=== PATIENT | male | born 1955 | race Caucasian/White ===

== ENCOUNTER 2017-02-18 13:10 | Emergency (ER) | payer OTHER, SELFPAY ==
[2017-02-18 13:30] VITALS: BP 168/88; PULSE 75; RESP 18; TEMP 36.7; O2SAT 97; BMI 23.4
[2017-02-18 13:58] VITALS: BP 168/88; PULSE 75; RESP 18; TEMP 36.6; O2SAT 97; BMI 23.4
--- NOTE | 2017-02-18 14:04 | XR_ITS ---
XR finger RT min 2V CLINICAL INDICATION: Pain following injury ITS.REASON: SMASHED FINGER AT WORK ORDERING PHYSICIAN: Eloina Lewis PATIENT AGE: 62 years COMPARISON: None FINDINGS: No fracture or dislocation is evident. On the AP view there is a triangular-shaped 3 mm opacity along the base and ulnar aspect of the fifth metacarpal and could represent a foreign body such as these glass within the soft tissues. Please correlate clinically. IMPRESSION: 1. No acute fracture. 2. Possible foreign body at the base of the fifth metacarpal
--- NOTE | 2017-02-18 14:48 | HMH.EDUTC ---
[facility] [place] Disposition Clinical Impression: Finger injury Qualifiers: Encounter type: initial encounter Laterality: right Qualified Code(s): S69.91XA - Unspecified injury of right wrist, hand and finger(s), initial encounter Disposition: Home, Self-Care Condition on Discharge: Good Additional Instructions: *RICE, Rest the extremity, Ice 15-20 minutes 3-4 times daily, Compress- wear the brian wrap as discussed as much as possible to help reduce swelling and pain, Elevate the extremity when at rest *Brian wrap is for support and help control swelling, use it except in the shower. Be sure that is not to tight but not to loose either *Elevate when resting *Ibuprofen 600-800mg every 6-8 hours as needed for pain an inflammation. If need something more can take Tylenol in between doses of Ibuprofen to help Immediately follow up for new or worsening of symptoms, or no noticeable improvement over the next 3-5 days Referrals: Provider,Referral, MD [Primary Care Provider] - Time of Disposition: 15:23 Medical Decision Making Vital Signs: 02/18/17 13:30 02/18/17 13:58 Temperature 98.0 F 98 F Temperature Source Oral Temporal Artery Scan Pulse Rate [Left Brachial] 75 75 Respiratory Rate 18 18 Blood Pressure [Left Arm] 168/88 168/88 Blood Pressure Mean [Left Arm] 114 114 Blood Pressure Source [Left Arm] Automatic Cuff Automatic Cuff Blood Pressure Position [Left Arm] Sitting Sitting 02 Sat by Pulse Oximetry 97 97 Oxygen Delivery Method Room Air Room Air Orders (Tests/Meds): ED MEDICATIONS Discontinued Medications Generic Name Dose Route Start Last Admin Trade Name Freq PRN Reason Stop Dose Admin Tetanus/Diphtheria Toxoids 0.5 ml 02/18/17 15:02 Tenivac 0.5ml Syringe IM 02/18/17 15:03 .ONCE ONE - Radiology Data #1 Image(s): Finger(s)/Thumb Image Reviewed: Yes I discussed the image results w/the radiologist - Huey Inquiry Pt receiving controlled substance: No Huey was queried for this patient: No - Reevaluation(s) Time: 15:22 (Bleeding stopped, small 1x2 area where skin has been scratched off that was bleeding, steri placed and bleeding stopped no obvious nail injury/cut) [facility] [place] HPI - General Stated complaint: wc [id number] R pinky finger Mode of Arrival: Ambulatory Source of Information: Patient Limitations: No Limitations Description of Symptoms (Recalled from Triage Doc. by RN): SMASHED RT FIFTH DIGIT WHILE AT WORK HEENT Symptoms (Recalled from RN notes): No Resp Symptoms (Recalled from RN notes): No Skin Symptoms (Recalled from RN notes): No MS Symptoms (Recalled from RN notes): Yes (SMASHED RT FIFTH DIGIT) Functional Status (Recalled from RN notes): N/A - History of Present Illness Provider Complaint: Patient states that he was at work when his right pinky finger got smashed between bucket and metal railing State that he is on blood thinner and noticed that his finger was bleeding States that he immediately applied pressure to the finger and it continued bleeding so his boss had him come up here and be seen State that he feels like he smashed his nail and peeled the skin back on his finger State that he also needs a tetnus shot - Related Data Allergies Allergy/AdvReac Type Severity Reaction Status Date / Time aspirin [ASPIRIN] Allergy Unknown rash Unverified 01/27/17 14:37 clarithromycin [From BIAXIN] Allergy Unknown rash Unverified 01/27/17 14:37 - Worker's Comp Is this a Worker's Comp case?: Yes Is this an H Worker's Comp?: No Is this a Zack Worker's Comp?: No [facility] History I have reviewed the patient's past medical history: Yes - *Social History Smoking Status: Never smoker Alcohol Intake: never - Psychiatric History Expresses thoughts of harming self/others: None Suicide Plan Description: No Plan ROS Obtained: Yes All systems reviewed & no additional complaints, Yes other (injury to right 5th digit ) Physical Exam - General General appearance: alert, in n
--- NOTE | 2017-02-18 14:51 | ED_ITS ---
[facility] [place] Disposition Clinical Impression: Finger injury Qualifiers: Encounter type: initial encounter Laterality: right Qualified Code(s): S69.91XA - Unspecified injury of right wrist, hand and finger(s), initial encounter Disposition: Home, Self-Care Condition on Discharge: Good Additional Instructions: *RICE, Rest the extremity, Ice 15-20 minutes 3-4 times daily, Compress- wear the brian wrap as discussed as much as possible to help reduce swelling and pain, Elevate the extremity when at rest *Brian wrap is for support and help control swelling, use it except in the shower. Be sure that is not to tight but not to loose either *Elevate when resting *Ibuprofen 600-800mg every 6-8 hours as needed for pain an inflammation. If need something more can take Tylenol in between doses of Ibuprofen to help Immediately follow up for new or worsening of symptoms, or no noticeable improvement over the next 3-5 days Referrals: Provider,Referral, MD [Primary Care Provider] - Time of Disposition: 15:23 Medical Decision Making Vital Signs: 02/18/17 13:30 02/18/17 13:58 Temperature 98.0 F 98 F Temperature Source Oral Temporal Artery Scan Pulse Rate [Left Brachial] 75 75 Respiratory Rate 18 18 Blood Pressure [Left Arm] 168/88 168/88 Blood Pressure Mean [Left Arm] 114 114 Blood Pressure Source [Left Arm] Automatic Cuff Automatic Cuff Blood Pressure Position [Left Arm] Sitting Sitting 02 Sat by Pulse Oximetry 97 97 Oxygen Delivery Method Room Air Room Air Orders (Tests/Meds): ED MEDICATIONS Discontinued Medications Generic Name Dose Route Start Last Admin Trade Name Freq PRN Reason Stop Dose Admin Tetanus/Diphtheria Toxoids 0.5 ml 02/18/17 15:02 Tenivac 0.5ml Syringe IM 02/18/17 15:03 .ONCE ONE - Radiology Data #1 Image(s): Finger(s)/Thumb Image Reviewed: Yes I discussed the image results w/the radiologist - Huey Inquiry Pt receiving controlled substance: No Huey was queried for this patient: No - Reevaluation(s) Time: 15:22 (Bleeding stopped, small 1x2 area where skin has been scratched off that was bleeding, steri placed and bleeding stopped no obvious nail injury/cut) [facility] [place] HPI - General Stated complaint: wc [id number] R pinky finger Mode of Arrival: Ambulatory Source of Information: Patient Limitations: No Limitations Description of Symptoms (Recalled from Triage Doc. by RN): SMASHED RT FIFTH DIGIT WHILE AT WORK HEENT Symptoms (Recalled from RN notes): No Resp Symptoms (Recalled from RN notes): No Skin Symptoms (Recalled from RN notes): No MS Symptoms (Recalled from RN notes): Yes (SMASHED RT FIFTH DIGIT) Functional Status (Recalled from RN notes): N/A - History of Present Illness Provider Complaint: Patient states that he was at work when his right pinky finger got smashed between bucket and metal railing State that he is on blood thinner and noticed that his finger was bleeding States that he immediately applied pressure to the finger and it continued bleeding so his boss had him come up here and be seen State that he feels like he smashed his nail and peeled the skin back on his finger State that he also needs a tetnus shot - Related Data Allergies Allergy/AdvReac Type Severity Reaction Status Date / Time aspirin [ASPIRIN] Allergy Unknown rash Unverified 01/27/17 14:37 clarithromycin [From BIAXIN] Allergy Unknown rash
== END 2017-02-18 15:37 | disposition home or self-care (01) ==
LOC: UTC 13:15 → ER 13:21 → UTC 13:56 → ER 13:56 → UTC 13:56
PROVIDERS: Emergency Provider Nurse Practitioner
DX: S60.051A Contusion of right little finger without damage to nail, initial encounter (principal); W23.0XXA Caught, crushed, jammed, or pinched between moving objects, initial encounter; Y92.69 Other specified industrial and construction area as the place of occurrence of the external cause; Y99.0 Civilian activity done for income or pay; Z23 Encounter for immunization; Z79.01 Long term (current) use of anticoagulants; I25.10 Atherosclerotic heart disease of native coronary artery without angina pectoris; Z95.5 Presence of coronary angioplasty implant and graft
CPT/HCPCS: 73140; 90471; 90714; 99202; 99282

== ENCOUNTER → 2017-03-04 10:27 | Outpatient (CLI) | payer OTHER, SELFPAY ==
--- NOTE | 2017-03-04 10:33 | CA_ITS ---
PROCEDURE: 2-D M-mode and color Doppler study INDICATIONS FOR THE TEST: Chest pain COPD+ Heart Murmur Tobacco SmokingEX Palpitations Fatigue Syncope Edema Hypertension+Diabetes Mellitus Rheumatic Fever SOB+CHENG Obesity Hyperlipidemia+ Family History HD+ Additional History CAD, ABN EKG, Asthma PATIENT INFORMATION HEIGHT: 71 WEIGHT:174 GENDER: Male B/P:182/110 2-D/M-MODE INTERPRETATION: 2-D MEASUREMENTS OBSERVED VALUES IN CMS Right Ventricular Dimension (RVDd) 2.2 Interventricular Septum (Thickness)(IVsd) 1.3 Left Ventricular Internal Dimensions(LVIDd) 4.3 Left Ventricular Posterior Wall (Thickness)(LVPWd) 1.2 Aortic Root 2.8 Aortic Cusp Separation 1.8 Left Atrial Dimensions (LAD) 3.3 2D 1. Left atrium is mildly enlarged, left ventricle is normal size, there is mild concentric left ventricular hypertrophy, visually estimated ejection fraction 55% with no obvious regional wall motion abnormality. 2. The right atrium and right ventricle are normal size and contractility. 3. The aortic valve is minimally thickened and fibrosed. 4. The mitral and tricuspid valve are minimally thickened. 5. Pulmonic valve is poorly visualized. 6. No significant pericardial effusion noted. DOPPLER INTERROGATION: Doppler interrogation of the aortic, mitral and tricuspid valvular presence of mild mitral and tricuspid regurgitation, tricuspid and enteric velocity insufficient for calculation of the right ventricular systolic pressure, grade 1 diastolic dysfunction seen with tissue Doppler evidence of raised left atrial pressure. CONCLUSION: 1. Mildly enlarged left atrium, normal left ventricular size, mild concentric left ventricular hypertrophy, visually estimated ejection fraction 55% with no obvious regional wall motion abnormality, grade 1 diastolic dysfunction seen with tissue Doppler evidence of raised left atrial pressure. 2. Mild mitral and tricuspid regurgitation. 3. No significant pericardial effusion noted.
[2017-03-04 11:35] LABS: Alanine Aminotransferase 30 U/L (12-78); Albumin Level 3.7 gm/dL (3.4-5.0); Alkaline Phosphatase 93 U/L (46-116); Anion Gap 11.8 mEq/L (5-15); Aspartate Amino Transferase 24 U/L (15-37); Bilirubin,Direct 0.2 mg/dL (0.0-0.2); Bilirubin,Total 0.7 mg/dL (0.2-1.0); Blood Urea Nitrogen 14 mg/dL (7-18); CKMB Relative Index 0.9 U/L (0-4.0); Carbon Dioxide 30 mmol/L (21.0-32.0); Chloride 104 mmol/L (98-107); Chol/HDL Ratio 1.7 (1-3.5); Cholesterol 117 mg/dL (140-200); Creatine Kinase 103 U/L (39-308); Creatine Kinase MB 0.9 mg/ml (0.0-3.6); Creatinine,Serum 0.98 mg/dL (0.70-1.30); Estimated Glomerular Filt Rate 77 ml/min (>60); GFR (African American) 93 ML/MIN (>60); Glucose 105 mg/dL (74-106); HDL Cholesterol 70 mg/dL (27-67); LDL Cholesterol 37 mg/dL (0-130); Potassium 4.8 mmoL/L (3.5-5.1); Sodium 141 mmol/L (136-145); Total Protein,Serum 7.1 gm/dL (6.4-8.2); Triglycerides 48 mg/dL (30-200); Troponin I < 0.02 ng/ml (0.00-0.06); VLDL Cholesterol 10 mg/dL (0-40)
== END ==
PROVIDERS: Internal Medicine; PCP Family Medicine; Visit Provider Physician Assistant
DX: Z95.5 Presence of coronary angioplasty implant and graft (principal); I25.10 Atherosclerotic heart disease of native coronary artery without angina pectoris; I10 Essential (primary) hypertension; E78.5 Hyperlipidemia, unspecified; R06.00 Dyspnea, unspecified
CPT/HCPCS: 36415; 80048; 80061; 80076; 82550; 82553; 84484; 93306

== ENCOUNTER → 2018-11-23 13:10 | Outpatient (CLI) | payer OTHER, SELFPAY ==
--- NOTE | 2018-11-23 13:24 | CT_ITS ---
PROCEDURE: CT CHEST WO CON CLINICAL INDICATION: WEIGHT LOSS Unintentional weight loss COMPARISON: No exams were available for comparison TECHNIQUE: Axial images obtained with sagittal and coronal reformats. All CT scans at the facility use one or more dose reduction, viz: automated exposure control, ma/kV adjustment per patient size (including targeted exams where dose is matched to indication, i.e. head), or iterative reconstruction technique. FINDINGS: No mediastinal or hilar mass or adenopathy. There are few calcified nodes in the mediastinum and a few small mediastinal nodes are present which are noncalcified. There are coronary artery calcifications. There is COPD changes with biapical pleural thickening and centrilobular emphysema. Calcified granuloma is present in the right upper lobe inferiorly. There are mild fibrotic changes in the lingula. No suspicious pulmonary nodules. No lobar consolidation or collapse. Upper abdominal images are unremarkable. No acute bony findings. There is a small left renal cyst which measures 2.6 cm IMPRESSION: COPD/centrilobular emphysema with chronic changes. No acute finding. Dictated by: Antonio Puente MD 11/24/2018 16:40 Electronically signed by Antonio Puente MD in [place] 11/24/2018 16:40
== END ==
PROVIDERS: PCP Family Medicine; Visit Provider Nurse Practitioner Family
DX: R63.4 Abnormal weight loss (principal)
CPT/HCPCS: 71250

== ENCOUNTER 2020-03-06 06:28 | Inpatient (IN) | payer OTHER, SELFPAY ==
[2020-03-06] VITALS (11 sets, daily range): BP systolic 125–194; BP diastolic 80–113; PULSE 61–96; RESP 16–26; TEMP 36.6–36.9; O2SAT 83–98; BMI 24.3; BMI 22.4
--- NOTE | 2020-03-06 06:31 | XR_ITS ---
PROCEDURE: XR CHEST PORTABLE CLINICAL HISTORY: SOB Shortness of COMPARISON: CR CXR2 CHEST-AP VIEW ONLY from 07/22/2016 CR CXR1 CHEST-PORTABLE from 07/24/2016 CR CXR CHEST(2 VIEWS-NOT PORTABLE) from 07/28/[address] CHEST WO CON from 11/23/2018 FINDINGS: The cardiomediastinal silhouette and pulmonary vascularity are within normal limits. There is hyperinflation with attenuation of the peripheral pulmonary vessels consistent with COPD. Old granulomatous disease noted. No acute bony abnormalities. IMPRESSION: Findings compatible with COPD Dictated by: Antonio Puente MD 03/06/2020 07:07 Antonio Puente MD in [facility] 03/06/2020 07:07
[2020-03-06 06:41] LABS: ABG Base Excess 3.6 mmol/L (-2.4-2.3); ABG HCO3 28.9 mmhg (22.0-26.0); ABG Oxygen Saturation 97 % (90-100); ABG PH 7.37 mmol/L (7.35-7.45); ABG PO2 87.3 mmhg (80-100); ABG TCO2 30.5 mmhg (23-27)
[2020-03-06 06:42] LABS: Allen's Test ACCEPTABLE; Oxygen 4LPM %; Source L RADIAL
[2020-03-06 06:43] LABS: ABG PCO2 51.2 mmhg (35.0-45.0)
[2020-03-06 06:48] LABS: Basophils # 0.2 K/mm3 (0-0.2); Basophils % 1.3 % (0.1-2.0); Eosinophils # 0.1 K/mm3 (0.0-0.4); Eosinophils % 1.1 % (0.1-12.0); Hematocrit 52.9 % (42.0-52.0); Hemoglobin 17.4 g/dL (14.1-18.0); Lymphocytes # 3.6 K/mm3 (0.7-4.5); Lymphocytes % 30.7 % (10-50); Mean Corpuscular HGB Conc 32.9 g/dL (31.8-35.4); Mean Corpuscular Hemoglobin 30.9 pg (27.0-31.2); Mean Corpuscular Volume 93.8 fl (80-94); Mean Platelet Volume 7.3 fl (7.4-10.4); Monocytes # 1.2 K/mm3 (0.1-1.0); Monocytes % 9.9 % (1.7-9.3); Neutrophils # 6.7 K/mm3 (1.8-7.8); Platelet Count 216 K/mm3 (142-424); Red Blood Count 5.64 M/mm3 (4.60-6.20); Red Cell Distribution Width 13.8 % (11.5-17.5); White Blood Count 11.8 K/mm3 (4.8-10.8)
[2020-03-06 06:59] LABS: Alanine Aminotransferase 24 U/L (12-78); Albumin Level 4.5 g/dl (3.5-5.0); Alkaline Phosphatase 105 U/L (38-126); Anion Gap 12.3 mEq/L (5-15); Aspartate Amino Transferase 40 U/L (17-59); Bilirubin,Direct 0.2 mg/dl (0.0-0.4); Bilirubin,Indirect 0.3 mg/dL (0.0-0.9); Bilirubin,Total 0.5 mg/dl (0.2-1.3); Bilirubin,Unconjugated 0.3 mg/dL (0.0-1.1); Blood Urea Nitrogen 21 mg/dl (9-20); Calcium 9.5 mg/dl (8.4-10.2); Carbon Dioxide 36 mmol/L (22.0-30.0); Chloride 97 mmol/L (98-107); Creatinine Clearance Estimated 79 mL/min (50-200); Estimated Glomerular Filt Rate 97 ml/min (>60); GFR (African American) 117 ML/MIN (>60); Glucose 108 mg/dl (74-100); Lactic Acid 1.5 mmol/L (0.7-2.1); Potassium 4.3 mmoL/L (3.5-5.1); Sodium 141 mmol/L (136-145); Total Protein,Serum 7.8 g/dl (6.3-8.2)
[2020-03-06 07:00] LABS: Magnesium 2.1 mg/dl (1.6-2.3)
[2020-03-06 07:09] LABS: NT Pro Brain Natriuretic Pep. 403 pg/mL (0-125)
[2020-03-06 07:14] LABS: Troponin I < 0.01 ng/ml (0.00-0.034)
[2020-03-06 07:16] LABS: Procalcitonin 0.053 ng/mL (0.0-2.0)
[2020-03-06 07:17] LABS: Coronavirus 19 IgG Antibody Negative (Negative); Coronavirus 19 IgM Antibody Negative (Negative)
--- NOTE | 2020-03-06 07:25 | HMH.EDSOB ---
ED Disposition Clinical Impression: Pneumonia due to COVID-19 virus, Acute exacerbation of chronic obstructive airways disease Hypertensive disorder Qualifiers: Hypertension type: essential hypertension Qualified Code(s): I10 - Essential (primary) hypertension Disposition: Admitted As Inpatient Condition on Discharge: Fair Referrals: Michael Handy MD [Primary Care Provider] - - Critical Care Critical Care Time: No Attestation: On 03/06/20, the high probability of a clinically significant, sudden or life threatening deterioration of the following system(s) required my full and direct attention, intervention and personal management. The time I documented below is in addition to time spent performing reported procedures but includes the following listed in this critical care notation. Medical Decision Making - Medical Records Medical records reviewed: Yes: I reviewed the patient's medical records. - Huey Inquiry Pt receiving controlled substance: No Vital Signs: 03/06/20 06:28 03/06/20 07:31 03/06/20 08:30 Temperature 98.5 F Temperature Source Oral Pulse Rate [Left Radial] 91 H 87 88 Respiratory Rate 26 H Blood Pressure [Right Arm] 189/113 H 194/112 H 161/107 H Blood Pressure Mean [Right Arm] 138 139 125 Blood Pressure Source [Right Arm] Automatic Cuff Automatic Cuff Automatic Cuff Blood Pressure Position [Right Arm] Sitting Sitting Sitting 02 Sat by Pulse Oximetry 83 L 98 96 Oxygen Delivery Method Room Air Nasal Cannula Nasal Cannula Oxygen Flow Rate (LPM) 2 2 - Lab Data Lab results reviewed: Yes: I reviewed the patient's lab results. Lab Results 03/06/20 06:30: WBC 11.8 H, RBC 5.64, Hgb 17.4, Hct 52.9 H, MCV 93.8, MCH 30.9, MCHC 32.9, RDW 13.8, Plt Count 216, MPV 7.3 L, Neut % (Auto) 57.0, Lymph % (Auto) 30.7, [place] % (Auto) 9.9 H, Eos % (Auto) 1.1, Baso % (Auto) 1.3, Neut # (Auto) 6.7, Lymph # (Auto) 3.6, [place] # (Auto) 1.2 H, Eos # (Auto) 0.1, Baso # (Auto) 0.2 03/06/20 06:30: Sodium 141, Potassium 4.3, Chloride 97 L, Carbon Dioxide 36 H, Anion Gap 12.3, BUN 21 H, Creatinine 0.80, Estimated Creat Clear 79, Estimated GFR 97, Est GFR ( Amer) 117, Glucose 108 H, Calcium 9.5, Total Bilirubin 0.5, Direct Bilirubin 0.2, Conjugated Bilirubin 0.0, Indirect Bilirubin 0.3, Unconjugated Bilirubin 0.3, AST 40, ALT 24, Alkaline Phosphatase 105, Troponin I < 0.01, Total Protein 7.8, Albumin 4.5, Procalcitonin 0.053 03/06/20 06:30: Lactate 1.5 03/06/20 06:30: SARS-CoV-2 IgG Ab (Rapid) Negative, SARS-CoV-2 IgM Ab (Rapid) Negative 03/06/20 06:30: NT-Pro-B Natriuret Pep 403 H 03/06/20 06:30: Magnesium 2.1 03/06/20 06:32: Specimen Source L radial, O2 % 4lpm, ABG pH 7.37, ABG pCO2 51.2 H, ABG pO2 87.3, ABG HCO3 28.9 H, ABG Total CO2 30.5 H, ABG O2 Saturation 97, ABG Base Excess 3.6 H, Antonio Test Acceptable 03/06/20 06:45: Chlamy pneumoniae PCR Not detected, Adenovirus (PCR) Not detected, B. pertussis DNA (PCR) Not detected, Coronavirus OC43 (PCR) Not detected, Coronavirus HKU1 (PCR) Not detected, Coronavirus 229E (PCR) Not detected, SARS-CoV-2 (PCR) Detected A, Coronavirus NL63 (PCR) Not detected, Human Metapneumovir PCR Not detected, Influenza A (H1) PCR Not detected, Influ A (H1N1/09) PCR Not detected, Influenza A (H3) PCR Not detected, Influenza Type A (PCR) Not detected, Influenza Type B (PCR) Not detected, M. pneumoniae (PCR) Not detected, Parainfluenza 1 (PCR) Not detected, Parainfluenza 2 (PCR) Not detected, Parainfluenza 3 (PCR) Not detected, Parainfluenza 4 (PCR) Not detected, RSV (PCR) Not detected, Entero/Rhino (PCR) Not detected Result diagrams: 03/06/20 06:30 03/06/20 06:30 Orders (Tests/Meds): ED MEDICATIONS Discontinued Medications Generic Name Dose Route Start Last Admin Trade Name Freq PRN Reason Stop Dose Admin Dexamethasone Sodium Phosphate 10 mg 03/06/20 06:35 03/06/20 06:54 Dexamethasone 4mg/Ml 1ml Vial IV 03/06/20 06:36 Not Given ONCE ONE Dexamethasone Sodium Ph
[2020-03-06 07:33] LABS: Adenovirus,PCR Not Detected (NotDetected); Bordetella Pertussis Not Detected (NotDetected); Chlamydophila Pneumoniae, PCR Not Detected (NotDetected); Coronavirus 229E Not Detected (NotDetected); Coronavirus NL63 Not Detected (NotDetected); Coronavirus OC43 Not Detected (NotDetected); Coronovirus HKU1,PCR Not Detected (NotDetected); Human Metapneumovirus Not Detected (NotDetected); Influenza A, PCR Not Detected (NotDetected); Influenza AH1, 2009 Not Detected (NotDetected); Influenza AH1, PCR Not Detected (NotDetected); Influenza AH3,PCR Not Detected (NotDetected); Influenza B, PCR Not Detected (NotDetected); Mycoplasma Pneumoniae, PCR Not Detected (NotDetected); Parainfluenza 1, PCR Not Detected (NotDetected); Parainfluenza 2, PCR Not Detected (NotDetected); Parainfluenza 3, PCR Not Detected (NotDetected); Parainfluenza 4, PCR Not Detected (NotDetected); Respiratory Syncytial Virus Not Detected (NotDetected); Rhinovirus/Enterovirus Not Detected (NotDetected)
--- NOTE | 2020-03-06 07:44 | PC.NURSE ---
Went in a shift change to do pt's EKG, Pt stated what are you doing I explained to him that there had been an EKG ordered for him and that it looked at his heart and he stated that there wasn't anything wrong with his heart, it didn't hurt, it felt fine I asked pt if he wanted to decline the EKG and he stated as long as that was ok with me he didn't want it.
--- NOTE | 2020-03-06 07:51 | CT_ITS ---
PROCEDURE: CT ANGIO CHEST CLINCIAL INDICATION: SOA Positive Covid19 COMPARISON: No exams were available for comparison TECHNIQUE: IV Contrast: 70ML Isovue 370 Axial images obtained with sagittal and coronal reformats. All CT scans at the facility use one or more dose reduction, viz: automated exposure control, ma/kV adjustment per patient size (including targeted exams where dose is matched to indication, i.e. head), or iterative reconstruction technique. FINDINGS: HEART AND MEDIASTINAL STRUCTURES: No evidence of pulmonary embolus, aortic aneurysm, or aortic dissection. Scattered small nodes are present in the mediastinum which are nonspecific. Coronary artery calcifications are present. LUNGS AND PLEURAL SPACES: Changes of COPD and old granulomatous disease. There is scarring in the lung apices. There are patchy areas of ground-glass attenuation in the right lower lobe laterally and in the left lower lobe laterally. No consolidation. Atelectatic or scarring noted in the right lower lobe medially. There is some scarring in the lingula with some faint nodular opacities which may represent tree in bud pattern from early pneumonia. There are mild degenerative changes in the thoracic spine.. BONY STRUCTURES: Degenerative changes thoracic spine UPPER ABDOMEN: Left renal cyst ADDITIONAL FINDINGS: No other significant abnormalities. IMPRESSION: 1. No evidence of pulmonary embolus, aortic aneurysm, or aortic dissection.. 2. COPD with faint ground-glass attenuation in the lower lobes which may be seen with early Covid19 pneumonia. There is some scarring present and questionable tree-in-bud infiltrate in the lingula Dictated by: Antonio Puente MD 03/06/2020 09:01 Antonio Puente MD in [place] 03/06/2020 09:01
--- NOTE | 2020-03-06 08:01 | PC.NURSE ---
pt to CT
--- NOTE | 2020-03-06 08:05 | PC.NURSE ---
Pt to rad.
--- NOTE | 2020-03-06 08:15 | PC.NURSE ---
pt returned from rad.
[2020-03-06 08:24] LABS: Coronavirus 19, PCR Detected (NotDetected)
--- NOTE | 2020-03-06 10:31 | PC.NURSE ---
Pt to be admitted to room 205 per housekeeping cleaner.
--- NOTE | 2020-03-06 11:16 | HMH.HP ---
*Admission Date: 03/06/20 <Ladonna Hernandez 03/06/20 11:37> *Chief complaint: Shortness of breath <Ladonna Hernandez 03/06/20 11:37> *History of present illness: Mr. Sosa is a 64-year-old male with a history of asthma and COPD, MRSA pneumonia, C. difficile colitis, NSTEMI in 2017 who presented to [facility] emergency room early this a.m. due to progressive shortness of breath. He denies fever, chest pain, and nausea. He states he has been eating and drinking satisfactory. Patient does have a cough which she describes as more frequent and is just become productive since having a treatment in the emergency room. With evaluation in the emergency room temperature was found to be 98.5 blood pressure was elevated at 189/113 and did decrease down to 161/107. CBC with a white blood cell count of 11,800 sodium and potassium were normal BUN was 21 and creatinine 0.8. Liver function studies were not elevated. Lactate was 1.5. Covid IgG and IgM were both negative but Covid per PCR was detected. ABGs in the emergency room showed a pH of 7.37 PCO2 of 51.2 PO2 of 87.3 and a bicarb of 28.9 on 4 L/min. CTA of the chest revealed no evidence of pulmonary embolus, aortic aneurysm, or aortic dissection. He was noted to have COPD with faint groundglass attenuation in the lower lobes which is seen with early COVID-19 pneumonia. Also was some scarring present and questionable tree-in-bud infiltrate in the lingula He was given 10 mg of dexamethasone IV and then admitted for further treatment with Covid protocol. At the time of this exam patient is sitting on the side of the stretcher and appears in no acute distress. He is short of breath he was speaking. He does have a congestive cough. <Ladonna Hernandez 03/06/20 11:37> [facility] History Medical History: Reports:: Asthma, Chronic Obstructive Pulmonary Disease (COPD), Coronary Artery Disease, Hiatal Hernia, Hypertension <HernandezLadonna 03/06/20 11:37> *Have you ever received a pneumonia vaccine?: No <Ladonna Hernandez 03/06/20 11:37> *Have you received a flu vaccine this season?: No <Ladonna Hernandez 21 11:37> Other Medical History: Reports: Arthritis <Ladonna Hernandez 03/06/20 11:37> Laterality Cases: Bilateral: Arthroscopy Knee, Tonsillectomy <HernandezLadonna 03/06/20 11:37> Other Surgeries: Yes: Hernia Repair, Other <Ladonna Hernandez 03/06/20 11:37> - *Social History Smoking Status: Former smoker <HernandezLadonna 03/06/20 11:37> Alcohol Intake: current <HernandezLadonna 03/06/20 11:37> Alcohol Intake Frequency:: holidays/special occasions only <HernandezLadonna 03/06/20 11:37> *Occupational Status:: retired <HernandezLadonna 03/06/20 11:45> *Travel in the last 8 weeks: None <Hernandez,Ladonna 03/06/20 11:45> Family Hx:: Coronary Artery Disease, Diabetes, Hyperlipidemia, Hypertension <HernandezLadonna 03/06/20 11:45> Review of Systems - Constitutional Denies fever(s), Denies lack of energy <Hernandez,Ladonna 03/06/20 11:37> - Eyes Reports change in vision <Hernandez,Ladonna 03/06/20 11:37> - ENT Denies dizziness, Denies ear pain, Denies sore throat <HernandezLadonna 03/06/20 11:37> - *Cardiovascular Reports shortness of breath, Denies chest pain, Denies irregular heart rhythm <Hernandez,Ladonna 03/06/20 11:37> - *Respiratory Reports chest congestion, Reports cough, Reports shortness of breath <Hernandez,Ladonna 03/06/20 11:37> - *Gastrointestinal Denies abdominal pain, Denies loose stools, Denies nausea, Denies vomiting <Hernandez,Ladonna 03/06/20 11:37> - *Genitourinary Denies difficulty urinating <Hernandez,Ladonna 03/06/20 11:37> - *Musculoskeletal Reports muscle weakness (today), Denies abnormal walking <MaryLadonna 03/06/20 11:37> - *Neurologic Denies headache(s), Denies seizure-like activity <Ladonna Hernnadez - 03/06/20 11:37> Meds Home Medications Medication Instructions Recorded Confirmed Type aspirin 81 mg tablet,delayed 81 mg PO DAILY 03/02/17
[2020-03-06 11:20] LABS: Troponin I < 0.01 ng/ml (0.00-0.034)
--- NOTE | 2020-03-06 11:33 | PC.NURSE ---
PATIENT BROUGHT TO FLOOR BY WHEELCHAIR
--- NOTE | 2020-03-06 12:24 | P.CONPHA_ITS ---
[facility] Pharmacy VTE Monitoring - Patient Demographics Admission date: 03/06/20 Report Date: 03/06/20 Time: 12:24 Allergies/Adverse Reactions: Patient Allergies No Known Allergies Allergy (Verified 03/06/20 06:35) Height: 1.8 m Weight: 72.91 kg Patient Problems: Current Active Problems Pneumonia due to COVID-19 virus (Acute) Acute exacerbation of chronic obstructive airways disease (Acute) Hypertensive disorder (Acute) Coronary arteriosclerosis (Chronic) - VTE Risk Labs: VTE Related Lab Results Hgb 17.4 g/dL (14.1-18.0) 03/06/20 06:30 Hct 52.9 % (42.0-52.0) H 03/06/20 06:30 Plt Count 216 K/mm3 (142-424) 03/06/20 06:30 BUN 21 mg/dl (9-20) H 03/06/20 06:30 Creatinine 0.80 mg/dl (0.66-1.25) 03/06/20 06:30 Estimated Creat Clear 79 mL/min (50-200) 03/06/20 06:30 Was VTE Risk Assessment Performed: Yes VTE Score: 2 VTE Risk Level: Very Low Risk Clinical Trial Participant: No - Prophylaxis VTE Prophylaxis Ordered?: Yes Types of VTE Prophylaxis: TEDS Knee High, Pharmacological Pharmacologic Type: Enoxaparin
[2020-03-06 14:02] LABS: Troponin I < 0.01 ng/ml (0.00-0.034)
--- NOTE | 2020-03-06 14:45 | ECG_ITS ---
APPROVED REPORT Exam: Resting ECG HR:58 bpm ECG Measurements Heart Rate 58 AXES NM 142 P 87 QRSd 74 QRS -24 QT 412 T 69 QTc 404 Conclusion Sinus bradycardia Nonspecific ST and T wave abnormality Abnormal ECG Electronically signed by : Good Becerril, 03/07/2020 05:56:19
--- NOTE | 2020-03-06 19:22 | PC.NURSE ---
Patient was admitted from er today for covid/pneumonia with copd exacerbation. Patient is alert and oriented x 4, up ad meenakshi, independent mobility. cardiac ns. patient was on 4l nc, has been titrated to room air, satting mid 90's. Patient is breathing 24+ times per minute but is oxygenating well. WIll continu to monitor.
[2020-03-07] VITALS (9 sets, daily range): BP systolic 156–188; BP diastolic 94–100; PULSE 60–87; RESP 19–24; TEMP 36.4–36.7; O2SAT 91–100; BMI 22.0; BMI 21.9
[2020-03-07 06:28] LABS: Basophils # 0.1 K/mm3 (0-0.2); Basophils % 0.7 % (0.1-2.0); Eosinophils % 0.2 % (0.1-12.0); Hematocrit 46.2 % (42.0-52.0); Lymphocytes # 2.5 K/mm3 (0.7-4.5); Lymphocytes % 31.7 % (10-50); Mean Corpuscular HGB Conc 31.6 g/dL (31.8-35.4); Mean Corpuscular Hemoglobin 29.3 pg (27.0-31.2); Mean Corpuscular Volume 92.7 fl (80-94); Mean Platelet Volume 6.9 fl (7.4-10.4); Monocytes # 0.9 K/mm3 (0.1-1.0); Monocytes % 11.1 % (1.7-9.3); Neutrophils # 4.4 K/mm3 (1.8-7.8); Neutrophils % 56.4 % (37.0-80.0); Platelet Count 176 K/mm3 (142-424); Red Blood Count 4.98 M/mm3 (4.60-6.20); Red Cell Distribution Width 13.2 % (11.5-17.5); White Blood Count 7.8 K/mm3 (4.8-10.8)
[2020-03-07 06:47] LABS: Hemoglobin 14.6 g/dL (14.1-18.0)
[2020-03-07 07:03] LABS: Anion Gap 8.9 mEq/L (5-15); Blood Urea Nitrogen 20 mg/dl (9-20); Calcium 8.7 mg/dl (8.4-10.2); Carbon Dioxide 32 mmol/L (22.0-30.0); Chloride 102 mmol/L (98-107); Creatinine Clearance Estimated 75 mL/min (50-200); Estimated Glomerular Filt Rate 97 ml/min (>60); GFR (African American) 117 ML/MIN (>60); Glucose 89 mg/dl (74-100); Potassium 3.9 mmoL/L (3.5-5.1); Sodium 139 mmol/L (136-145)
--- NOTE | 2020-03-07 08:17 | HMH.ACPN2 ---
<Melina Sherwood - Last Filed: 03/07/20 08:17> Internal Medicine - PN: Subj *Date: 03/07/20 *Time: 08:17 Interval history: Patient states he is not feeling well this morning. He denies any pain but just cannot breathe. He has wheezing and shortness of breath. He states he is extremely short of breath with any movement. He is trying to eat his breakfast this morning. He slept off and on throughout the night. Exam Vital signs and Labs for Last 24 Hours: Temp Pulse Resp BP Pulse Ox 97.6 F 71 24 188/97 H 100 03/07/20 07:43 03/07/20 07:43 03/07/20 07:43 03/07/20 07:43 03/07/20 07:43 Laboratory Results - last 24 hr 03/06/20 06:45: Chlamy pneumoniae PCR Not detected, Adenovirus (PCR) Not detected, B. pertussis DNA (PCR) Not detected, Coronavirus OC43 (PCR) Not detected, Coronavirus HKU1 (PCR) Not detected, Coronavirus 229E (PCR) Not detected, SARS-CoV-2 (PCR) Detected A, Coronavirus NL63 (PCR) Not detected, Human Metapneumovir PCR Not detected, Influenza A (H1) PCR Not detected, Influ A (H1N1/09) PCR Not detected, Influenza A (H3) PCR Not detected, Influenza Type A (PCR) Not detected, Influenza Type B (PCR) Not detected, M. pneumoniae (PCR) Not detected, Parainfluenza 1 (PCR) Not detected, Parainfluenza 2 (PCR) Not detected, Parainfluenza 3 (PCR) Not detected, Parainfluenza 4 (PCR) Not detected, RSV (PCR) Not detected, Entero/Rhino (PCR) Not detected 03/06/20 10:19: Troponin I < 0.01 03/06/20 13:26: Troponin I < 0.01 03/07/20 05:25: WBC 7.8 D, RBC 4.98, Hgb 14.6 D, Hct 46.2, MCV 92.7, MCH 29.3, MCHC 31.6 L, RDW 13.2, Plt Count 176, MPV 6.9 L, Neut % (Auto) 56.4, Lymph % (Auto) 31.7, [place] % (Auto) 11.1 H, Eos % (Auto) 0.2, Baso % (Auto) 0.7, Neut # (Auto) 4.4, Lymph # (Auto) 2.5, [place] # (Auto) 0.9, Eos # (Auto) 0.0, Baso # (Auto) 0.1 03/07/20 05:25: Sodium 139, Potassium 3.9, Chloride 102, Carbon Dioxide 32 H, Anion Gap 8.9, BUN 20, Creatinine 0.80, Estimated Creat Clear 75, Estimated GFR 97, Est GFR ( Amer) 117, Glucose 89, Calcium 8.7 I & O for Last 24 hours: Intake & Output 03/04/20 03/05/20 03/06/20 03/07/20 11:59 11:59 11:59 11:59 Intake Total 600 / 600 Balance 600 / 600 Weight 160 lb 11.834 oz 157 lb 8.324 oz Microbiology Reports for the Last 24 Hours: Microbiology 03/06/20 18:40 Sputum - Expectorated Sputum Gram Stain - Final - Constitutional Comments: Dyspneic at rest - *Routine Respiratory Exam Present: rales (bibasilar), rhonchi, wheezes - *Routine Cardiovascular Exam Present: RRR - *Routine Abdominal Exam Present: soft, normoactive bowel sounds. Absent: tenderness - *Routine Extremities Exam Absent: cyanosis, clubbing, edema - *Routine Skin Exam Present: warm. Absent: rash - *Routine Neurological Exam Present: alert, oriented X3 Assessment and Plan (1) Pneumonia due to COVID-19 virus Status: Acute Category: Medical Code(s): U07.1 - COVID-19; J12.82 - Pneumonia due to coronavirus disease 2019 (2) Acute exacerbation of chronic obstructive airways disease Status: Acute Category: Medical Code(s): J44.1 - Chronic obstructive pulmonary disease with (acute) exacerbation (3) Hypertensive disorder Status: Acute Qualifiers: Hypertension type: essential hypertension Qualified Code(s): I10 - Essential (primary) hypertension Category: Medical Code(s): I10 - Essential (primary) hypertension (4) Coronary arteriosclerosis Status: Chronic Category: Medical Code(s): I25.10 - Atherosclerotic heart disease of [place] coronary artery without angina pectoris - Assessment and plan all Dx Assessment and Plan for all problems:: We will continue Covid protocol. Patient needs nebulizer treatments. Care management to check and see if he can get this since he is not in a negative pressure room. <Michael Handy - Last Filed: 03/07/20 12:46> Internal Medicine - PN: Subj *Date: 03/07/20 *Time: 12:45 Exam Vital signs a
--- NOTE | 2020-03-07 09:40 | HMH.PULMCON ---
*Admission Date: 03/06/20 *History of present illness: Mr. Gomez is a 65-year-old male prior history of asthma COPD / overlap syndrome, MRSA pneumonia, C. difficile colitis presented to the hospital with worsening respiratory failure and patient was eventually found to have Covid and pneumonia admitted for further management. Patient was also found to be hypertensive and managing as per primary team. Patient only complains of intermittent productive phlegm. [facility] History Medical History: Reports:: Asthma, Chronic Obstructive Pulmonary Disease (COPD), Coronary Artery Disease, Hiatal Hernia, Hypertension, MRSA *Have you ever received a pneumonia vaccine?: No *Have you received a flu vaccine this season?: No Other Medical History: Reports: Arthritis Laterality Cases: Bilateral: Arthroscopy Knee, Tonsillectomy Other Surgeries: Yes: Hernia Repair, Other - *Social History Last grade of school completed: GED Smoking Status: Former smoker Alcohol Intake: never Alcohol Intake Frequency:: holidays/special occasions only *Occupational Status:: retired Housing: house Household Members: spouse *Travel in the last 8 weeks: None Family Hx:: Coronary Artery Disease, Diabetes, Hyperlipidemia, Hypertension ROS - Cons Reports body ache(s), Reports chills - Card Reports shortness of breath with activity - Resp Respiratory: Reports chest congestion, Reports cough, Reports dyspnea, Reports dyspnea on exertion, Reports excessive phlegm production Meds Home Medications Medication Instructions Recorded Confirmed Type aspirin 81 mg tablet,delayed 81 mg PO DAILY 03/02/17 03/06/20 History release fluticasone furoate 100 1 inh INHALATION Q24H 03/02/17 03/06/20 History mcg-vilanterol 25 mcg/dose inhalation powder atorvastatin 80 mg tablet 80 mg PO DAILY #90 tab 07/12/19 03/06/20 Rx carvediloL [Carvedilol 12.5mg Tab] 12.5 mg PO BID 03/06/20 03/06/20 History lisinopriL [Lisinopril 20mg Tab] 20 mg PO BID 03/06/20 03/06/20 History Allergies Allergy/AdvReac Type Severity Reaction Status Date / Time No Known Allergies Allergy Verified 03/06/20 06:35 Exam - Constitutional Constitutional:: Present: no acute distress, comfortable - HENMT Exam HENMT: Present: normocephalic, atraumatic - Respiratory Exam Respiratory:: Present: able to speak in complete sentences, no respiratory distress, normal respiratory effort, crackles - Cardiovascular Exam Cardiac:: Present: S1, S2 - GI Exam GI:: Present: soft - Skin Exam Skin: Present: warm - Neurological Exam Neurological: Present: alert, awake, normal cognition - Extremities Exam Extremities: Present: no cyanosis, no clubbing, no edema Internal Medicine - CN: Reslt - Labs CBC & Chem 7: 03/07/20 05:25 03/07/20 05:25 Labs: Short CBC 03/07/20 Range/Units 05:25 WBC 7.8 D (4.8-10.8) K/mm3 Hgb 14.6 D (14.1-18.0) g/dL Hct 46.2 (42.0-52.0) % Plt Count 176 (142-424) K/mm3 BMP 03/07/20 05:25 Sodium 139 Potassium 3.9 Chloride 102 Carbon Dioxide 32 H BUN 20 Creatinine 0.80 Glucose 89 Calcium 8.7 Cardiac Enzymes 03/06/20 03/06/20 Range/Units 10:19 13:26 Troponin I < 0.01 < 0.01 (0.00-0.034) ng/ml - ABG Interpretation ABG results: 03/06/20 06:32 ABG pH 7.37 ABG pCO2 51.2 H ABG pO2 87.3 ABG HCO3 28.9 H ABG Total CO2 30.5 H ABG O2 Saturation 97 ABG Base Excess 3.6 H Assessment and Plan (1) Pneumonia due to COVID-19 virus Status: Acute Category: Medical Code(s): U07.1 - COVID-19; J12.82 - Pneumonia due to coronavirus disease 2019 (2) Acute exacerbation of chronic obstructive airways disease Status: Acute Category: Medical Code(s): J44.1 - Chronic obstructive pulmonary disease with (acute) exacerbation (3) Hypertensive disorder Status: Acute Qualifiers: Hypertension type: essential hypertension Qualified Code(s): I10 - Essential (primary) hypertension [place]
--- NOTE | 2020-03-07 19:15 | PC.NURSE ---
Pt remains on room air. Since receiving nebs pt's breathing is much more relaxed, lung sounds improved as well. Still admits to being SOA w/ activity. Ambulates independently w/o safety concerns. Denies being dizzy. HR regular. Abdomen soft, non-tender w/ active BS. BM this AM. Voiding w/o difficulty. Skin intact. Currently sitting up in bed watching tv. No needs voiced. VSS. BP improved from this AM.
[2020-03-08] VITALS (8 sets, daily range): BP systolic 129–171; BP diastolic 84–92; PULSE 60–85; RESP 17–20; TEMP 36.3–36.7; O2SAT 90–96; BMI 21.9
--- NOTE | 2020-03-08 05:14 | PC.NURSE ---
Pt is A&Ox4. Expiratory wheezing noted t/o all lung herrmann. Pt state satisfactory results from scheduled neb treatments. Pt continues to ambulate independently w/ steady gait and balance. Active bowel sounds in all 4 quads. No BM noted this shift thus far. No other acute changes or complaints at this time.
[2020-03-08 05:22] LABS: Chloride 101 mmol/L (98-107); Potassium 3.5 mmoL/L (3.5-5.1); Sodium 139 mmol/L (136-145)
[2020-03-08 05:25] LABS: Alanine Aminotransferase 17 U/L (12-78); Albumin Level 3.5 g/dl (3.5-5.0); Albumin/Globulin Ratio 1.3 (1.1-1.8); Alkaline Phosphatase 80 U/L (38-126); Anion Gap 8.5 mEq/L (5-15); Aspartate Amino Transferase 31 U/L (17-59); Bilirubin,Total 0.3 mg/dl (0.2-1.3); Blood Urea Nitrogen 22 mg/dl (9-20); Calcium 8.8 mg/dl (8.4-10.2); Carbon Dioxide 33 mmol/L (22.0-30.0); Creatinine Clearance Estimated 73 mL/min (50-200); Estimated Glomerular Filt Rate 97 ml/min (>60); GFR (African American) 117 ML/MIN (>60); Globulin 2.6 g/dL (1.3-3.2); Glucose 94 mg/dl (74-100); Total Protein,Serum 6.1 g/dl (6.3-8.2)
--- NOTE | 2020-03-08 08:33 | HMH.ACPN2 ---
<Melina Sherwood - Last Filed: 03/08/20 08:33> Internal Medicine - PN: Subj *Date: 03/08/20 *Time: 08:33 Interval history: Patient is feeling much better today. His wheezing has improved after receiving neb treatments. He is off his oxygen. He still has a cough but denies any pain. He slept well and ate a good breakfast this morning. Exam Vital signs and Labs for Last 24 Hours: Temp Pulse Resp BP Pulse Ox 97.9 F 68 20 167/84 H 92 L 03/08/20 04:00 03/08/20 06:00 03/08/20 04:00 03/08/20 04:00 03/08/20 06:00 Laboratory Results - last 24 hr 03/08/20 04:30: Sodium 139, Potassium 3.5, Chloride 101, Carbon Dioxide 33 H, Anion Gap 8.5, BUN 22 H, Creatinine 0.80, Estimated Creat Clear 73, Estimated GFR 97, Est GFR ( Amer) 117, Glucose 94, Calcium 8.8, Total Bilirubin 0.3, AST 31, ALT 17 D, Alkaline Phosphatase 80, Total Protein 6.1 L, Albumin 3.5, Globulin 2.6, Albumin/Globulin Ratio 1.3 I & O for Last 24 hours: Intake & Output 03/05/20 03/06/20 03/07/20 03/08/20 11:59 11:59 11:59 11:59 Intake Total 1260 / 1260 840 / 840 Balance 1260 / 1260 840 / 840 Weight 160 lb 11.834 oz 156 lb 8.451 oz 156 lb 15.506 oz Microbiology Reports for the Last 24 Hours: Microbiology 03/06/20 06:30 Blood Blood Culture - Preliminary NO GROWTH AFTER 48 HOURS 03/06/20 06:30 Blood Blood Culture - Preliminary NO GROWTH AFTER 48 HOURS 03/06/20 18:40 Sputum - Expectorated Sputum Gram Stain - Final 03/06/20 18:40 Sputum - Expectorated Sputum Sputum Culture - Preliminary - Constitutional no acute distress - *Routine Respiratory Exam Present: wheezes - *Routine Cardiovascular Exam Present: RRR - *Routine Abdominal Exam Present: soft, normoactive bowel sounds. Absent: tenderness - *Routine Extremities Exam Absent: cyanosis, clubbing, edema - *Routine Skin Exam Present: warm. Absent: rash - *Routine Neurological Exam Present: alert, oriented X3 Assessment and Plan (1) Pneumonia due to COVID-19 virus Status: Acute Category: Medical Code(s): U07.1 - COVID-19; J12.82 - Pneumonia due to coronavirus disease 2019 (2) Acute exacerbation of chronic obstructive airways disease Status: Acute Category: Medical Code(s): J44.1 - Chronic obstructive pulmonary disease with (acute) exacerbation (3) Hypertensive disorder Status: Acute Qualifiers: Hypertension type: essential hypertension Qualified Code(s): I10 - Essential (primary) hypertension Category: Medical Code(s): I10 - Essential (primary) hypertension (4) Coronary arteriosclerosis Status: Chronic Category: Medical Code(s): I25.10 - Atherosclerotic heart disease of [place] coronary artery without angina pectoris - Assessment and plan all Dx Assessment and Plan for all problems:: Patient improving. Continue Covid protocol. <Michael Handy - Last Filed: 03/08/20 10:48> Internal Medicine - PN: Subj *Date: 03/08/20 *Time: 10:47 Exam Vital signs and Labs for Last 24 Hours: Temp Pulse Resp BP Pulse Ox 97.7 F 76 17 160/92 H 91 L 03/08/20 08:00 03/08/20 08:00 03/08/20 08:00 03/08/20 08:00 03/08/20 08:00 Laboratory Results - last 24 hr 03/08/20 04:30: Sodium 139, Potassium 3.5, Chloride 101, Carbon Dioxide 33 H, Anion Gap 8.5, BUN 22 H, Creatinine 0.80, Estimated Creat Clear 73, Estimated GFR 97, Est GFR ( Amer) 117, Glucose 94, Calcium 8.8, Total Bilirubin 0.3, AST 31, ALT 17 D, Alkaline Phosphatase 80, Total Protein 6.1 L, Albumin 3.5, Globulin 2.6, Albumin/Globulin Ratio 1.3 I & O for Last 24 hours: Intake & Output 03/05/20 03/06/20 03/07/20 03/08/20 11:59 11:59 11:59 11:59 Intake Total 1260 / 1260 1200 / 1200 Balance 1260 / 1260 1200 / 1200 Weight 160 lb 11.834 oz 156 lb 8.451 oz 156 lb 15.506 oz Microbiology Reports for the Last 24 Hours: Microbiology 03/06/20 18:40 Sputu
--- NOTE | 2020-03-08 09:19 | P.PN_ITS ---
Internal Medicine - PN: Subj *Date: 03/08/20 *Time: 13:02 Interval history: No acute respiratory overnight. Patient admits to significant improvement in his symptoms Exam - Constitutional Constitutional:: Present: no acute distress, comfortable - HENMT Exam HENMT: Present: normocephalic, atraumatic - Neck Exam Neck:: Present: normal visual inspection - Respiratory Exam Respiratory:: Present: able to speak in complete sentences, normal respiratory effort, crackles. Absent: respiratory distress - Cardiovascular Exam Cardiac:: Present: S1, S2 - GI Exam GI:: Present: soft - Skin Exam Skin: Present: warm, no rash - Extremities Exam Extremities: Present: no cyanosis, no clubbing, no edema - Psychiatric Exam Psychiatric: Present: normal affect Assessment and Plan (1) Pneumonia due to COVID-19 virus Status: Acute Category: Medical Code(s): U07.1 - COVID-19; J12.82 - Pneumonia due to coronavirus disease 2019 (2) Acute exacerbation of chronic obstructive airways disease Status: Acute Category: Medical Code(s): J44.1 - Chronic obstructive pulmonary disease with (acute) exacerbation (3) Hypertensive disorder Status: Acute Qualifiers: Hypertension type: essential hypertension Qualified Code(s): I10 - Esse ntial (primary) hypertension Category: Medical Code(s): I10 - Essential (primary) hypertension (4) Coronary arteriosclerosis Status: Chronic Category: Medical Code(s): I25.10 - Atherosclerotic heart disease of [place] coronary artery without angina pectoris - Assessment and plan all Dx Assessment and Plan for all problems:: #COVID-19 pneumonia: #COPD exacerbation: 65-year-old male previous smoker last smoked around 2004, more than [id number] smoking history that carries a diagnosis of COPD and asthma was admitted to the hospital with worsening respiratory failure and found to be COVID-19 positive. CTA on admission negative for pulmonary embolism showed only minimal pulmonary infiltrates mild groundglass opacities and tree-in-bud the lower lobes, right lower lobe greater than the left lower lobe. Patient on examination appears comfortable not in any respiratory distress. Continue to be on room air. Blood cultures no growth 48 hours. Sputum inappropriate sample. Plan: - Continue ceftriaxone azithromycin for community-acquired pneumonia, can de- escalate to levofloxacin on discharge to complete 5 days -Continue DuoNebs every 6 hours and bedside every 12 schedule, can change to triple inhaler therapy on discharge -Continue remdesivir and dexamethasone untill discharge for COVID-19 pneumonia, de-escalate dexamethasone to prednisone 40 mg for total of 5 days on discharge #Thank you for involving pulmonary in this patient care. We will follow the patient in 4 to 6 weeks with Full PFTs and 6-minute walk testing
--- NOTE | 2020-03-08 18:10 | PC.NURSE ---
Pt has been pleasant and cooperative this shift. A&O X4. No complaints of pain or SOA. Pt is on room air with sats. >90%. Lung sounds reveal expiratory wheezes and fine crackles. Skin is C/D/I. No edema noted. Pt ambulates independently to/from the bathroom and throughout the room. 20 G peripheral IV in the LT AC is patent and infusing NS @ 75 ML/HR. VSS. Call light within reach. Will continue to monitor.
[2020-03-09] VITALS: BP 161/90; PULSE 66; RESP 18; TEMP 36.7; O2SAT 92
--- NOTE | 2020-03-09 00:29 | PC.NURSE ---
RT gave pt cup for SPT at 1999 on
--- NOTE | 2020-03-09 02:37 | PC.NURSE ---
Addendum entered by Luz Humphreys RN 03/09/20 04:15: PT HAS REMAINED ON RA SINCE MIDNIGHT AND TOLERATING WELL. Original Note: A&OX4. PT HAS TOLERATED 2L NC WELL THROUGHOUT SHIFT. RESPIRATIONS REGULAR AND UNLABORED. EXPIRATORY WHEEZES NOTED THROUGHOUT. OCCASIONAL NONPRODUCTIVE COUGH NOTED. ACTIVE BOWEL SOUNDS HEARD IN ALL 4 QUADRANTS. SOFT AND NONTENDER ABDOMEN. NO BM THUS FAR. PT VOIDS INDEPENDENTLY PER BATHROOM. NO PAIN OR SOB REPORTED THUS FAR. HAND CELL TENDER EQUAL. +2 PULSES NOTED THROUGHOUT. NO EDEMA NOTED. PT HAS SLEPT MOST OF SHIFT. PT HAS REMAINED IN CONTACT AND [employer] THROUGHOUT SHIFT. CALL LIGHT WITHIN REACH. BED IN LOWEST POSITION. VSS. WILL CONTINUE TO MONITOR.
[2020-03-09 03:49] VITALS: BP 136/91; PULSE 73; RESP 18; TEMP 36.6; O2SAT 93
[2020-03-09 06:44] VITALS: O2SAT 90
[2020-03-09 07:03] LABS: Alanine Aminotransferase 23 U/L (12-78); Albumin Level 3.4 g/dl (3.5-5.0); Albumin/Globulin Ratio 1.4 (1.1-1.8); Alkaline Phosphatase 72 U/L (38-126); Anion Gap 8.5 mEq/L (5-15); Aspartate Amino Transferase 36 U/L (17-59); Bilirubin,Total 0.3 mg/dl (0.2-1.3); Blood Urea Nitrogen 14 mg/dl (9-20); Calcium 8.4 mg/dl (8.4-10.2); Carbon Dioxide 32 mmol/L (22.0-30.0); Chloride 101 mmol/L (98-107); Creatinine Clearance Estimated 73 mL/min (50-200); Estimated Glomerular Filt Rate 113 ml/min (>60); GFR (African American) 137 ML/MIN (>60); Globulin 2.5 g/dL (1.3-3.2); Glucose 90 mg/dl (74-100); Potassium 3.5 mmoL/L (3.5-5.1); Sodium 138 mmol/L (136-145); Total Protein,Serum 5.9 g/dl (6.3-8.2)
[2020-03-09 08:00] VITALS: BP 187/97; PULSE 83; RESP 18; TEMP 36.8; O2SAT 93
--- NOTE | 2020-03-09 08:36 | HMH.ACPN2 ---
<Melina Sherwood - Last Filed: 03/09/20 08:36> Internal Medicine - PN: Subj *Date: 03/09/20 *Time: 08:36 Interval history: Patient is feeling better this morning. He has been up moving around his room but does get short of breath with any exertion. He refuses neb treatment this morning because he says it makes his nose congested. He denies any pain and states he slept well and ate all of his breakfast. He is currently not on oxygen. Exam Vital signs and Labs for Last 24 Hours: Temp Pulse Resp BP Pulse Ox 97.9 F 73 18 136/91 H 90 L 03/09/20 03:49 03/09/20 03:49 03/09/20 03:49 03/09/20 03:49 03/09/20 06:44 Laboratory Results - last 24 hr 03/09/20 06:45: Sodium 138, Potassium 3.5, Chloride 101, Carbon Dioxide 32 H, Anion Gap 8.5, BUN 14 D, Creatinine 0.70, Estimated Creat Clear 73, Estimated GFR 113, Est GFR ( Amer) 137, Glucose 90, Calcium 8.4, Total Bilirubin 0.3, AST 36, ALT 23 D, Alkaline Phosphatase 72, Total Protein 5.9 L, Albumin 3.4 L, Globulin 2.5, Albumin/Globulin Ratio 1.4 I & O for Last 24 hours: Intake & Output 03/06/20 03/07/20 03/08/20 03/09/20 11:59 11:59 11:59 11:59 Intake Total 1260 / 1260 1200 / 1200 4993 / 4993 Balance 1260 / 1260 1200 / 1200 4993 / 4993 Weight 160 lb 11.834 oz 156 lb 8.451 oz 156 lb 15.506 oz Microbiology Reports for the Last 24 Hours: Microbiology 03/06/20 18:40 Sputum - Expectorated Sputum Gram Stain - Final 03/06/20 18:40 Sputum - Expectorated Sputum Sputum Culture - Preliminary 03/06/20 06:30 Blood Blood Culture - Preliminary NO GROWTH AFTER 48 HOURS 03/06/20 06:30 Blood Blood Culture - Preliminary NO GROWTH AFTER 48 HOURS - Constitutional no acute distress - *Routine Respiratory Exam Present: decreased breath sounds, wheezes (less wheezing) - *Routine Cardiovascular Exam Present: RRR - *Routine Abdominal Exam Present: soft, normoactive bowel sounds. Absent: tenderness - *Routine Extremities Exam Absent: cyanosis, clubbing, edema - *Routine Skin Exam Present: warm. Absent: rash - *Routine Neurological Exam Present: alert, oriented X3 Assessment and Plan (1) Pneumonia due to COVID-19 virus Status: Acute Category: Medical Code(s): U07.1 - COVID-19; J12.82 - Pneumonia due to coronavirus disease 2019 (2) Acute exacerbation of chronic obstructive airways disease Status: Acute Category: Medical Code(s): J44.1 - Chronic obstructive pulmonary disease with (acute) exacerbation (3) Hypertensive disorder Status: Acute Qualifiers: Hypertension type: essential hypertension Qualified Code(s): I10 - Essential (primary) hypertension Category: Medical Code(s): I10 - Essential (primary) hypertension (4) Coronary arteriosclerosis Status: Chronic Category: Medical Code(s): I25.10 - Atherosclerotic heart disease of [place] coronary artery without angina pectoris - Assessment and plan all Dx Assessment and Plan for all problems:: We will continue Covid protocol. Still awaiting sputum culture results. <Michael Handy - Last Filed: 03/09/20 12:02> Internal Medicine - PN: Subj *Date: 03/09/20 *Time: 12:00 Exam Vital signs and Labs for Last 24 Hours: Temp Pulse Resp BP Pulse Ox 98.3 F 83 18 187/97 H 93 L 03/09/20 08:00 03/09/20 08:00 03/09/20 08:00 03/09/20 08:00 03/09/20 08:00 Laboratory Results - last 24 hr 03/09/20 06:45: Sodium 138, Potassium 3.5, Chloride 101, Carbon Dioxide 32 H, Anion Gap 8.5, BUN 14 D, Creatinine 0.70, Estimated Creat Clear 73, Estimated GFR 113, Est GFR ( Amer) 137, Glucose 90, Calcium 8.4, Total Bilirubin 0.3, AST 36, ALT 23 D, Alkaline Phosphatase 72, Total Protein 5.9 L, Albumin 3.4 L, Globulin 2.5, Albumin/Globulin Ratio 1.4 I & O for Last 24 hours: Intake & Output 03/07/20 03/08/20 03/09/20 03/10/20 11:59 11:59 11:59 11:59 Intake Total 1264
--- NOTE | 2020-03-09 10:21 | SW/DCPLANNER ---
Addendum entered by Radha Sheffield 03/09/20 11:11: Angella with [employer] has stated that patient information/order has been reviewed and portable O2 will be delivered to patient today incase discharge later today or over weekend. Original Note: Patient could potentially discharge home later today or over the weekend. Patient will need home O2 at time of discharge. Patient information/order has been faxed to [facility] for home O2 and portable tank. I will follow up with [employer] once patient information/order is reviewed.
--- NOTE | 2020-03-09 11:08 | P.PN_ITS ---
Internal Medicine - PN: Subj *Date: 03/09/20 *Time: 11:08 Interval history: No acute respiratory events overnight. Patient remained on room air. Appears comfortable. Exam - Constitutional Constitutional:: Present: no acute distress, comfortable - HENMT Exam HENMT: Present: normocephalic, atraumatic - Eye Exam Eyes:: Present: normal appearance both eyes and related structures - Neck Exam Neck:: Present: normal visual inspection - Respiratory Exam Respiratory:: Present: able to speak in complete sentences, wheezing - Cardiovascular Exam Cardiac:: Present: S1, S2 - GI Exam GI:: Present: soft - Skin Exam Skin: Present: warm, no rash - Neurological Exam Neurological: Present: alert, awake, normal cognition - Extremities Exam Extremities: Present: no cyanosis, no clubbing, no edema Assessment and Plan (1) Pneumonia due to COVID-19 virus Status: Acute Category: Medical Code(s): U07.1 - COVID-19; J12.82 - Pneumonia due to coronavirus disease 2018 (2) Acute exacerbation of chronic obstructive airways disease Status: Acute Category: Medical Code(s): J44.1 - Chronic obstructive pulmonary disease with (acute) exacerbation (3) Hypertensive disorder Status: Acute Qualifiers: Hypertension type: essential hypertension Qualified Code(s): I10 - Essential (primary) hypertension Category: Medical Code(s): I10 - Essential (primary) hypertension (4) Coronary arteriosclerosis Status: Chronic Category: Medical Code(s): I25.10 - Atherosclerotic heart disease of [place] coronary artery without angina pectoris - Assessment and plan all Dx Assessment and Plan for all problems:: #COVID-19 pneumonia: #COPD exacerbation: 65-year-old male previous smoker last smoked around 2004, more than 46-[id number]-jhih smoking history that carries a diagnosis of COPD and asthma was admitted to the hospital with worsening respiratory failure and found to be COVID-19 positive. CTA on admission negative for pulmonary embolism showed only minimal pulmonary infiltrates mild groundglass opacities and tree-in-bud the lower lobes, right lower lobe greater than the left lower lobe. Patient on examination appears comfortable not in any respiratory distress. Continue to be on room air. Blood cultures no growth 48 hours. Sputum normal respiratory [place]. Plan: - Continue ceftriaxone azithromycin for community-acquired pneumonia, can de- escalate to levofloxacin on discharge to complete 5 days -Patient refusing every 6 DuoNebs, will change to Combivent every 6 scheduled along with DuoNebs every 6 hours as needed. We will continue budesonide every 12 nebs scheduled basis can change to triple inhaler therapy on discharge -Continue remdesivir and dexamethasone untill discharge for COVID-19 pneumonia, de-escalate dexamethasone to prednisone 40 mg for total of 5 days on discharge #Thank you for involving pulmonary in this patient care. We will sign off at this point of time. We will follow the patient in 4 to 6 weeks with Full PFTs and 6-minute walk testing
--- NOTE | 2020-03-09 15:15 | HMH.DCSUM ---
General - General Admission date:: 03/06/20 <Michael Handy - 03/27/20 12:50> 03/06/20 <Melina Sherwood - 03/09/20 15:20> Discharge date: 03/09/20 <KaelaMelina - 03/09/20 15:20> HPI HPI: Mr. Sosa is a 64-year-old male with a history of asthma and COPD, MRSA pneumonia, C. difficile colitis, NSTEMI in 2017 who presented to [facility] emergency room early this a.m. due to progressive shortness of breath. He denies fever, chest pain, and nausea. He states he has been eating and drinking satisfactory. Patient does have a cough which she describes as more frequent and is just become productive since having a treatment in the emergency room. With evaluation in the emergency room temperature was found to be 98.5 blood pressure was elevated at 189/113 and did decrease down to 161/107. CBC with a white blood cell count of 11,800 sodium and potassium were normal BUN was 21 and creatinine 0.8. Liver function studies were not elevated. Lactate was 1.5. Covid IgG and IgM were both negative but Covid per PCR was detected. ABGs in the emergency room showed a pH of 7.37 PCO2 of 51.2 PO2 of 87.3 and a bicarb of 28.9 on 4 L/min. CTA of the chest revealed no evidence of pulmonary embolus, aortic aneurysm, or aortic dissection. He was noted to have COPD with faint groundglass attenuation in the lower lobes which is seen with early COVID-19 pneumonia. Also was some scarring present and questionable tree-in-bud infiltrate in the lingula He was given 10 mg of dexamethasone IV and then admitted for further treatment with Covid protocol. At the time of this exam patient is sitting on the side of the stretcher and appears in no acute distress. He is short of breath he was speaking. He does have a congestive cough. <Melina Sherwood - 03/09/20 15:20> Hospital Course Hospital Course: The patient was started on Covid protocol and was placed on Rocephin and Zithromax for his pneumonia. He was started on his home blood pressure medications and pulmonology was consulted. The patient's wheezing and shortness of breath worsened. He was extremely short of breath with any movement and was even having difficulty speaking and eating his breakfast. Nebulizer treatments were ordered for the patient. Pulmonology saw the patient and felt he should be continued on Covid protocol as well as the antibiotics for community-acquired pneumonia. He felt these could be de-escalating to Levaquin on discharge. He felt he needed duo nebs every 6 hours and budesonide every 12 hours scheduled. He also wanted to continue dexamethasone and then de-escalate to prednisone at discharge. The patient's wheezing improved after receiving nebulizer treatments. He was able to get off of his oxygen and was eating well and sleeping well. His blood cultures showed no growth. His sputum culture showed normal respiratory catarina. By 03/09/2020 he was up moving around his room and felt better. He did well throughout the night, but was more dyspneic in the morning, however he refused nebulizer treatment stating it stopped up his nose. He did agree to take another neb treatment before discharge. He did well and was stable to be discharged home. <Melina Sherwood - 03/09/20 15:20> Objective Vital signs: Temp Pulse Resp BP Pulse Ox 98.3 F 83 18 187/97 H 93 L 03/09/20 08:00 03/09/20 08:00 03/09/20 08:00 03/09/20 08:00 03/09/20 08:00 <Michael Hanyd - 03/27/20 12:50> Temp Pulse Resp BP Pulse Ox 98.3 F 83 18 187/97 H 93 L 03/09/20 08:00 03/09/20 08:00 03/09/20 08:00 03/09/20 08:00 03/09/20 08:00 <Melina Sherwood - 03/09/20 15:20> Narrative: - Constitutional no acute distress - *Routine Respiratory Exam Present: decreased breath sounds, wheezes (less wheezing) - *Routine Cardiovascular Exam Present: RRR - *Routine Abdominal Exam Present: soft, normoactive bowel sounds. Absent: tenderness - *Routin
== END 2020-03-09 15:00 | disposition home or self-care (01) | DRG 177 ==
LOC: ER 09:07 → 2ND 10:39
PROVIDERS: Admitting Provider Family Medicine; Emergency Provider Emergency Medicine; PCP Family Medicine; Visit Provider Family Medicine
DX: U07.1 COVID-19 (principal); J12.82 Pneumonia due to coronavirus disease 2019; J44.1 Chronic obstructive pulmonary disease with (acute) exacerbation; I10 Essential (primary) hypertension; I25.2 Old myocardial infarction; I25.10 Atherosclerotic heart disease of native coronary artery without angina pectoris; Z79.82 Long term (current) use of aspirin; Z79.899 Other long term (current) drug therapy; Z87.891 Personal history of nicotine dependence
CPT/HCPCS: 36415; 71045; 71275; 80048; 80053; 80076; 82803; 83605; 83735; 83880; 84145; 84484; 85025; 86328; 87040; 87070; 87205; 87581; 87633; 87798; 93005; 94640; 94761; 96365; 96367; 96375; 99285; J0456; Q9967; U0003

== ENCOUNTER → 2020-04-27 11:53 | Outpatient (CLI) | payer OTHER, SELFPAY ==
--- NOTE | 2020-04-27 12:24 | XR_ITS ---
PROCEDURE: XR CHEST 2V CLINICAL HISTORY: Pneumonia COMPARISON: CR CXR1 CHEST-PORTABLE from 07/24/2016 CR CXR CHEST(2 VIEWS-NOT PORTABLE) from 07/28/2016 CR XR CHEST PORTABLE from 03/06/[address] ANGIO CHEST from 03/06/2020 FINDINGS: The cardiomediastinal silhouette and pulmonary vascularity are within normal limits. COPD. Patchy density is present in the right lung base suggesting an area of atelectasis or infiltrate. Mild degenerative changes thoracic spine. IMPRESSION: COPD with right basilar atelectasis or infiltrate. Dictated by: Antonio Puente MD 04/27/2020 14:53 Antonio Puente MD in OV 04/27/2020 14:53
[2020-04-27 12:41] LABS: Basophils # 0.1 K/mm3 (0-0.2); Basophils % 0.8 % (0.1-2.0); Eosinophils # 1.5 K/mm3 (0.0-0.4); Eosinophils % 14.1 % (0.1-12.0); Hematocrit 50.1 % (42.0-52.0); Hemoglobin 15.8 g/dL (14.1-18.0); Lymphocytes # 2.7 K/mm3 (0.7-4.5); Mean Corpuscular HGB Conc 31.5 g/dL (31.8-35.4); Mean Corpuscular Hemoglobin 29.5 pg (27.0-31.2); Mean Corpuscular Volume 93.5 fl (80-94); Monocytes # 0.6 K/mm3 (0.1-1.0); Monocytes % 5.1 % (1.7-9.3); Neutrophils # 5.9 K/mm3 (1.8-7.8); Platelet Count 208 K/mm3 (142-424); Red Blood Count 5.35 M/mm3 (4.60-6.20); Red Cell Distribution Width 13.6 % (11.5-17.5); White Blood Count 10.7 K/mm3 (4.8-10.8)
[2020-04-27 12:56] LABS: D-Dimer 0.91 ug/mL (0.0-0.5)
== END ==
PROVIDERS: PCP Family Medicine; Visit Provider Internal Medicine Pulmonary Disease
DX: J44.9 Chronic obstructive pulmonary disease, unspecified (principal); J45.909 Unspecified asthma, uncomplicated
CPT/HCPCS: 71046; 85025; 85378; 87070; 87205

== ENCOUNTER → 2020-06-22 11:24 | Outpatient (CLI) | payer MEDICARE, SELFPAY | PROVIDERS: Visit Provider Internal Medicine Gastroenterology | DX: Z01.812 Encounter for preprocedural laboratory examination (principal); Z20.822 Contact with and (suspected) exposure to COVID-19; Z12.11 Encounter for screening for malignant neoplasm of colon | CPT/HCPCS: U0003 ==

== ENCOUNTER 2020-06-25 12:00 | Day surgery (SDC) | payer MEDICARE, SELFPAY ==
[2020-06-20 13:14] VITALS: BMI 22.3
[2020-06-25 12:47] VITALS: BP 120/77; PULSE 89; PULSE 90; PULSE 95; RESP 18; TEMP 36.6; O2SAT 98
--- NOTE | 2020-06-25 13:26 | P.PN_ITS ---
[facility] Anesthesia Checklist - Patient Identification Patient Identification: Arm Band - Structural Data Admitted From: Home Planned Operative Procedure/s: colonoscopy Consent for Planned Operative Procedure(s) Verified: Yes Verified Documents: Surgical Consent, History and Physical - NPO Status Verified Time NPO: 00:00 - Additional verifications Anesthesia Reactions: No - Airway Assessment C-Spine Mobility Assessed: Yes (mp2) TMJ Mobility Assessed: Yes Dentition: Good Dentition - Neurological Assessment Level of Consciousness: Awake, Alert - Anesthesia Plan Anesthesia Risk discussed: Yes Anesthesia Plan: Verified ASA Class: III Anesthesia Type: MAC [facility] History I have reviewed the patient's past medical history: Yes Medical History: Reports:: Asthma, Chronic Obstructive Pulmonary Disease (COPD), Coronary Artery Disease, Hiatal Hernia, Hypertension, MRSA Denies:: Cancer, Diabetes Mellitus Type 1, Diabetes Mellitus Type 2, Seizures *Have you ever received a pneumonia vaccine?: No *Have you received a flu vaccine this season?: No Other Medical History: Reports: Arthritis Anesthesia experience/problems:: nac Laterality Cases: Bilateral: Arthroscopy Knee, Tonsillectomy Other Surgeries: Yes: Hernia Repair, Other Amputation: No Fractures: No - *Social History Last grade of school completed: High school graduate Smoking Status: Former smoker Alcohol Intake: never Alcohol Intake Frequency:: holidays/special occasions only Substance Use Type: denies use *Occupational Status:: retired Housing: house Household Members: spouse *Travel in the last 8 weeks: None Family Hx:: Coronary Artery Disease, Diabetes, Hyperlipidemia, Hypertension
--- NOTE | 2020-06-25 13:57 | HMH.PROC ---
[facility] Procedure Note Procedure Note:: Colonoscopy Procedure Report: Colonoscopy with cold snare polypectomy and Endo Clip placement Endoscopist: Joseph Buck II, MD Referring physician: Dayday Handy MD Date of Procedure: June 25, 2020 Equipment: Olympus 190 variable stiffness pediatric colonoscope Sedation: MAC sedation Indication: Mr. Sosa is a 65-year-old gentleman who is here for initial screening colonoscopy. He does state that one of his brothers had lung cancer and another brother had prostate cancer with bone metastasis. The patient reports no abdominal pain, change in his bowel habits or rectal bleeding. He reports no family history of colon cancer. The patient has lost a moderate amount of weight since being diagnosed with Covid in February 2020 and is on home oxygen presently. Procedure: Prior to the procedure, a history and physical exam was performed, and patient's medications and allergies were reviewed. The risks, benefits and alternatives of the sedation and procedure were discussed with the patient. All questions were answered and informed consent was obtained. The patient was brought to the procedure room. Patient identification and proposed procedure were verified by the physician and the nurse. The patient was placed in a left lateral decubitus position and the scope was passed under direct vision. Throughout the procedure, the patient's blood pressure, pulse, and oxygen saturations were monitored continuously. The colonoscopy was accomplished without difficulty. The patient tolerated the procedure well. Findings: On digital rectal examination there was normal rectal tone. There were no external hemorrhoids. The prostate was 2-3+, mildly firm on the left margin but no nodules. The colonoscope was introduced through the anal canal to the rectum and advanced to the cecum. The ileocecal valve and appendiceal orifice were identified. The scope was advanced a short distance into the ileum which appeared grossly normal. The scope was then withdrawn into the colon. There were 5 colon polyps (ascending x3 (3, 4 and 5 mm), transverse x1 (5 to 6 mm) and rectosigmoid x1 (19 mm)). The largest rectosigmoid polyp was removed in piecemeal and a single Endo Clip was utilized to close the polypectomy site. There were scattered diverticuli throughout the descending and sigmoid colon (LEFT colon). The rectum itself was normal. Upon retroflexion within the rectum there were 1-2 internal hemorrhoids. The preparation was excellent throughout with [place] Preparation Score of 9. The cecal time was 12 minutes. Impression: 1. Large rectosigmoid polyp (19 mm) 2. Additional 4 diminutive colon polyps 3. Left-sided diverticulosis 4. Grade 1-2 internal hemorrhoids Plan: I will follow up the polyp histology. Based upon the largest rectosigmoid polyp that is adenomatous and likely an advanced adenoma, I will base surveillance on whether there is any underlying high-grade dysplasia or even early malignant polyp (early adenocarcinoma) based upon its nature. This surveillance will also be determined by whether there is a clear margin at the polypectomy site. I would likely consider doing sigmoidoscopy again in 3 months and full screening/surveillance colonoscopy again in 3 years.
[2020-06-25 13:58] VITALS: BP 104/67; PULSE 85; RESP 18; TEMP 36.1; O2SAT 95
[2020-06-25 14:08] VITALS: BP 100/60; PULSE 82; RESP 18; O2SAT 97
[2020-06-25 14:31] VITALS: BP 130/74; PULSE 76; RESP 18; O2SAT 100
== END 2020-06-25 14:33 | disposition home or self-care (01) ==
LOC: OUTP 12:02
PROVIDERS: PCP Family Medicine; Visit Provider Internal Medicine Gastroenterology
PROC: 0DJD8ZZ Inspection of Lower Intestinal Tract, Via Natural or Artificial Opening Endoscopic (ICD-10-PCS; CPT 45378; principal; 2020-06-25 13:00)
DX: Z12.11 Encounter for screening for malignant neoplasm of colon (principal); K63.5 Polyp of colon; K57.30 Diverticulosis of large intestine without perforation or abscess without bleeding; K64.0 First degree hemorrhoids; Z80.1 Family history of malignant neoplasm of trachea, bronchus and lung; Z80.42 Family history of malignant neoplasm of prostate; Z80.8 Family history of malignant neoplasm of other organs or systems; Z86.16 Personal history of COVID-19; Z99.81 Dependence on supplemental oxygen; J44.9 Chronic obstructive pulmonary disease, unspecified; I25.10 Atherosclerotic heart disease of native coronary artery without angina pectoris; I10 Essential (primary) hypertension
CPT/HCPCS: 45385; 88305; 94640

== ENCOUNTER → 2020-12-26 08:01 | Outpatient (CLI) | payer MEDICARE, SELFPAY ==
[2020-12-26 08:57] LABS: Alanine Aminotransferase 25 U/L (12-78); Albumin Level 3.3 g/dl (3.5-5.0); Albumin/Globulin Ratio 1.5 (1.1-1.8); Alkaline Phosphatase 94 U/L (38-126); Anion Gap 6.3 mEq/L (5-15); Aspartate Amino Transferase 35 U/L (17-59); Bilirubin,Total 0.3 mg/dl (0.2-1.3); Blood Urea Nitrogen 21 mg/dl (9-20); Calcium 8.7 mg/dl (8.4-10.2); Carbon Dioxide 38 mmol/L (22.0-30.0); Chloride 100 mmol/L (98-107); Cholesterol 112 mg/dl (140-200); Estimated Glomerular Filt Rate 97 ml/min (>60); GFR (African American) 117 ML/MIN (>60); Globulin 2.2 g/dL (1.3-3.2); Glucose 115 mg/dl (74-100); HDL Cholesterol 57 mg/dl (40-60); Potassium 4.3 mmoL/L (3.5-5.1); Sodium 140 mmol/L (136-145); Total Protein,Serum 5.5 g/dl (6.3-8.2); Triglycerides 101 mg/dl (30-150); VLDL Cholesterol 20 mg/dL (0-40)
[2020-12-26 09:08] LABS: Direct LDL Cholesterol 42.28 mg/dL (100-129)
[2020-12-26 09:28] LABS: Prostate Specific Ag Screen 1.4 ng/ml (0.0-4.0)
== END ==
PROVIDERS: Visit Provider Family Medicine
DX: I25.10 Atherosclerotic heart disease of native coronary artery without angina pectoris (principal); Z12.5 Encounter for screening for malignant neoplasm of prostate
CPT/HCPCS: 36415; 80053; 80061; G0103

== ENCOUNTER 2021-05-02 20:19 | Observation (INO) | payer MEDICARE, SELFPAY ==
[2021-05-02] VITALS (7 sets, daily range): BP systolic 106–155; BP diastolic 71–84; PULSE 72–124; RESP 28; TEMP 37.4; O2SAT 88–96; BMI 17.2; BMI 20.5
--- NOTE | 2021-05-02 20:34 | ECG_ITS ---
APPROVED REPORT Exam: Resting ECG HR:120 bpm ECG Measurements Heart Rate 120 AXES NH 161 P 88 QRSd 85 QRS -47 QT 304 T 79 QTc 375 Conclusion SINUS TACHYCARDIA LEFT AXIS DEVIATION [QRS AXIS < -30] ABNORMAL ECG UNCONFIRMED REPORT Electronically signed by : Good Becerril MD 05/03/2021 19:38:24
--- NOTE | 2021-05-02 20:38 | XR_ITS ---
PROCEDURE INFORMATION: Exam: XR Chest Exam date and time: 05/02/2021 8:40 PM Age: 66 years old Clinical indication: Cough and shortness of breath; Prior surgery; Surgery date: 6+ months; Surgery type: Cardiac stent; Patient HX: Cough, congestion, shortness of breath, nausea, vomiting. ; Additional info: SOA TECHNIQUE: Imaging protocol: XR of the chest. Views: 2 views. COMPARISON: CR XR CHEST 2V 04/27/2020 12:30 PM FINDINGS: Lungs: Stable granuloma within the right midlung. Streaky opacities at the right base which are unchanged potentially secondary to scarring. Mild hyperinflation. Lobar No consolidation. Pleural spaces: Unremarkable. No pleural effusion. No pneumothorax. Heart/Mediastinum: Unremarkable. No cardiomegaly. Bones/joints: Degenerative changes of the shoulders. IMPRESSION: Streaky basilar airspace opacities which are likely atelectatic however atypical pneumonitis should be clinically excluded.
--- NOTE | 2021-05-02 20:39 | PC.NURSE ---
RT called for abg per Dr Landers for breathing treatment to be determined once resulted
[2021-05-02 20:45] LABS: ABG Base Excess -0.3 mmol/L (-2.4-2.3); ABG Oxygen Saturation 94 % (90-100); ABG PCO2 37.1 mmhg (35.0-45.0); ABG PH 7.43 mmol/L (7.35-7.45); ABG PO2 69.4 mmhg (80-100); ABG TCO2 25.2 mmhg (23-27)
[2021-05-02 20:46] LABS: Allen's Test Acceptable; Oxygen 1.5 %; Source Left Radial
--- NOTE | 2021-05-02 20:48 | HMH.EDSOB ---
ED Disposition Clinical Impression: Acute exacerbation of chronic obstructive airways disease, Flu, SIRS (systemic inflammatory response syndrome) Disposition: Admitted As Inpatient Condition on Discharge: Good - Critical Care Critical Care Time: No Attestation: On 05/02/21, the high probability of a clinically significant, sudden or life threatening deterioration of the following system(s) required my full and direct attention, intervention and personal management. The time I documented below is in addition to time spent performing reported procedures but includes the following listed in this critical care notation. Medical Decision Making - Medical Records Medical records reviewed: Yes: I reviewed the patient's medical records. - Huey Inquiry Pt receiving controlled substance: No Vital Signs: 05/02/21 20:19 05/02/21 20:32 05/02/21 21:00 Temperature 99.4 F Temperature Source Oral Pulse Rate 119 H 72 Pulse Rate [Left] 124 H Respiratory Rate 28 H Blood Pressure 114/82 155/82 H Blood Pressure [Right Arm] 134/74 Blood Pressure Mean [Right Arm] 94 02 Sat by Pulse Oximetry 88 L 93 L 90 L Oxygen Delivery Method Room Air Nasal Cannula Nasal Cannula Oxygen Flow Rate (LPM) 2 2 05/02/21 21:31 05/02/21 22:00 Temperature Temperature Source Pulse Rate 78 97 H Pulse Rate [Left] Respiratory Rate Blood Pressure 140/84 137/79 Blood Pressure [Right Arm] Blood Pressure Mean [Right Arm] 02 Sat by Pulse Oximetry 96 94 L Oxygen Delivery Method Nasal Cannula Nasal Cannula Oxygen Flow Rate (LPM) 2 2 - Lab Data Lab results reviewed: Yes: I reviewed the patient's lab results. Lab Results 05/02/21 20:35: WBC 11.3 H, RBC 4.99, Hgb 15.5, Hct 46.4, MCV 93.1, MCH 31.1, MCHC 33.4, RDW 13.7, Plt Count 274, MPV 7.5, Neut % (Auto) 78.2, Lymph % (Auto) 14.4, [place] % (Auto) 5.0, Eos % (Auto) 1.8, Baso % (Auto) 0.6, Neut # (Auto) 8.8 H, Lymph # (Auto) 1.6, [place] # (Auto) 0.6, Eos # (Auto) 0.2, Baso # (Auto) 0.1 05/02/21 20:35: Amylase 52, Lipase 63 05/02/21 20:35: Sodium 137, Potassium 4.5, Chloride 100, Carbon Dioxide 30, Anion Gap 11.5, BUN 22 H, Creatinine 1.20, Estimated Creat Clear 48, Estimated GFR 60, Est GFR ( Amer) 73, Glucose 94, Calcium 8.5, Total Bilirubin 0.7, AST 36, ALT 21, Alkaline Phosphatase 90, Troponin I < 0.01, NT-Pro-B Natriuret Pep 1290 H, Total Protein 6.8, Albumin 3.8, Globulin 3.0, Albumin/Globulin Ratio 1.3 05/02/21 20:39: Specimen Source Left radial, O2 % 1.5, ABG pH 7.43, ABG pCO2 37.1, ABG pO2 69.4 L, ABG HCO3 24.0, ABG Total CO2 25.2, ABG O2 Saturation 94, ABG Base Excess -0.3, Antonio Test Acceptable 05/02/21 20:40: SARS-CoV-2 (PCR) Not detected, Influenza A Untype (PCR) Detected A, Influenza Type B (PCR) Not detected 05/02/21 20:58: Urine Color Yellow, Urine Appearance Clear, Urine pH 5.0, Ur Specific [place] >= 1.030, Urine Protein 1+, Urine Glucose (UA) Negative, Urine Ketones Negative, Urine Blood Trace-i, Urine Nitrate Negative, Urine Bilirubin Negative, Urine Urobilinogen 0.2, Ur Leukocyte Esterase Negative, Urine RBC 3-5, Urine WBC Occasional, Ur Squamous Epith Cells None, Urine Bacteria None, Urine Mucus 1+ Result diagrams: 05/02/21 20:35 05/02/21 20:35 Orders (Tests/Meds): ED MEDICATIONS Generic Name Dose Route Start Last Admin Trade Name Freq PRN Reason Stop Dose Admin Sodium Chloride 1,000 mls @ 999 mls/hr 05/02/21 20:45 05/02/21 20:45 Sod Chlor 0.9% 1000ml Bag IV 05/02/21 21:45 999 mls/hr .Q1H1M AAYUSH Administration Sodium Chloride 1,000 mls @ 100 mls/hr 05/02/21 22:00 05/02/21 22:31 Sod Chlor 0.9% 1000ml Bag IV 06/01/21 21:59 100 mls/hr .Q10H AAYUSH Administration Azithromycin 500 mg/ Sodium 250 mls @ 250 mls/hr 05/02/21 22:30 Chloride IV 05/16/21 22:29 Q24H AAYUSH Ceftriaxone Sodium 1 gm/ 50 mls @ 100 mls/hr 05/02/21 22:30 05/02/21 22:50 Sodium Chloride IV 05/16/21 22:29 100 mls/hr Q24H AAYUSH Administration Oseltamivir
[2021-05-02 20:51] LABS: Coronavirus 19, PCR Not Detected (NotDetected); Influenza B, PCR Not Detected (NotDetected)
[2021-05-02 20:57] LABS: Basophils # 0.1 K/mm3 (0-0.2); Basophils % 0.6 % (0.1-2.0); Eosinophils # 0.2 K/mm3 (0.0-0.4); Eosinophils % 1.8 % (0.1-12.0); Hematocrit 46.4 % (42.0-52.0); Hemoglobin 15.5 g/dL (14.1-18.0); Lymphocytes # 1.6 K/mm3 (0.7-4.5); Lymphocytes % 14.4 % (10-50); Mean Corpuscular HGB Conc 33.4 g/dL (31.8-35.4); Mean Corpuscular Hemoglobin 31.1 pg (27.0-31.2); Mean Corpuscular Volume 93.1 fl (80-94); Mean Platelet Volume 7.5 fl (7.4-10.4); Monocytes # 0.6 K/mm3 (0.1-1.0); Neutrophils # 8.8 K/mm3 (1.8-7.8); Neutrophils % 78.2 % (37.0-80.0); Platelet Count 274 K/mm3 (142-424); Red Blood Count 4.99 M/mm3 (4.60-6.20); Red Cell Distribution Width 13.7 % (11.5-17.5); White Blood Count 11.3 K/mm3 (4.8-10.8)
[2021-05-02 21:01] LABS: Amylase 52 U/L (30-110); Lipase 63 U/L (23-300)
[2021-05-02 21:03] LABS: Microscopic, Urine URINE MICROSCOPIC (MICROSCOPIC)
[2021-05-02 21:17] LABS: Appearance,Urine CLEAR (Clear); Blood, Urine TRACE-I (Negative); Color,Urine YELLOW (Yellow); Glucose,Urine (UA) Negative (Negative); Ketones,Urine Negative (Negative); Leukocyte Esterase,Urine Negative (Negative); Nitrate,Urine Negative (Negative); Protein,Urine 1+ (Negative); Specific Gravity, Urine >= 1.030 (1.005-1.030); Urobilinogen,Urine 0.2 EU/dl (0.2)
[2021-05-02 21:24] LABS: Bilirubin,Urine Negative (Negative)
[2021-05-02 21:37] LABS: Chloride 100 mmol/L (98-107)
[2021-05-02 21:38] LABS: Potassium 4.5 mmoL/L (3.5-5.1); Sodium 137 mmol/L (136-145)
[2021-05-02 21:39] LABS: WBC,Urine Occasional #/hpf (0-3)
[2021-05-02 21:40] LABS: Mucus,Urine 1+ /lpf
[2021-05-02 21:40] LABS: Alanine Aminotransferase 21 U/L (12-78); Aspartate Amino Transferase 36 U/L (17-59); Blood Urea Nitrogen 22 mg/dl (9-20); Creatinine Clearance Estimated 48 mL/min (50-200); Estimated Glomerular Filt Rate 60 ml/min (>60); GFR (African American) 73 ML/MIN (>60)
[2021-05-02 21:41] LABS: Albumin Level 3.8 g/dl (3.5-5.0); Albumin/Globulin Ratio 1.3 (1.1-1.8); Alkaline Phosphatase 90 U/L (38-126); Anion Gap 11.5 mEq/L (5-15); Bilirubin,Total 0.7 mg/dl (0.2-1.3); Calcium 8.5 mg/dl (8.4-10.2); Carbon Dioxide 30 mmol/L (22.0-30.0); Glucose 94 mg/dl (74-100); Total Protein,Serum 6.8 g/dl (6.3-8.2)
[2021-05-02 21:50] LABS: NT Pro Brain Natriuretic Pep. 1290 pg/mL (0-125)
[2021-05-02 21:55] LABS: Influenza A, PCR Detected (NotDetected)
--- NOTE | 2021-05-02 21:59 | PC.NURSE ---
ordered breathing treatment RT was unable to come so it was administered per nurses in ED
[2021-05-02 22:02] LABS: Troponin I < 0.01 ng/ml (0.00-0.034)
[2021-05-02 23:30] LABS: Lactic Acid 1.2 mmol/L (0.7-2.1)
[2021-05-03] VITALS (12 sets, daily range): BP systolic 106–138; BP diastolic 56–84; PULSE 77–99; RESP 16–20; TEMP 36.6–37.1; O2SAT 95–98; BMI 20.5
--- NOTE | 2021-05-03 00:29 | PC.NURSE ---
patient up to floor via stretcher @ this time.
[2021-05-03 01:47] LABS: Troponin I < 0.01 ng/ml (0.00-0.034)
[2021-05-03 04:04] LABS: Troponin I < 0.01 ng/ml (0.00-0.034)
[2021-05-03 06:34] LABS: Basophils % 0.1 % (0.1-2.0); Hematocrit 38.8 % (42.0-52.0); Lymphocytes # 0.5 K/mm3 (0.7-4.5); Lymphocytes % 5.6 % (10-50); Mean Corpuscular HGB Conc 32.9 g/dL (31.8-35.4); Mean Corpuscular Hemoglobin 30.9 pg (27.0-31.2); Mean Platelet Volume 7.7 fl (7.4-10.4); Monocytes # 0.1 K/mm3 (0.1-1.0); Monocytes % 1.2 % (1.7-9.3); Platelet Count 231 K/mm3 (142-424); Red Blood Count 4.13 M/mm3 (4.60-6.20); Red Cell Distribution Width 13.8 % (11.5-17.5); White Blood Count 8.6 K/mm3 (4.8-10.8)
[2021-05-03 06:41] LABS: MANUAL DIFFERENTIAL MANUAL DIFFERENTIAL (MANUAL DIFF)
[2021-05-03 06:51] LABS: Anion Gap 11.6 mEq/L (5-15); Blood Urea Nitrogen 26 mg/dl (9-20); Carbon Dioxide 25 mmol/L (22.0-30.0); Chloride 104 mmol/L (98-107); Creatinine Clearance Estimated 67 mL/min (50-200); Estimated Glomerular Filt Rate 96 ml/min (>60); GFR (African American) 117 ML/MIN (>60); Glucose 129 mg/dl (74-100); Magnesium 1.8 mg/dl (1.6-2.3); Potassium 4.6 mmoL/L (3.5-5.1); Sodium 136 mmol/L (136-145)
--- NOTE | 2021-05-03 07:32 | HMH.PHAVTE ---
[facility] Pharm[facility] VTE Monitoring - Patient Demographics Admission date: 05/03/21 Report Date: 05/03/21 Time: 07:32 Allergies/Adverse Reactions: Patient Allergies No Known Allergies Allergy (Verified 06/20/20 13:09) Height: 1.8 m Weight: 66.423 kg Patient Problems: Current Active Problems Acute exacerbation of chronic obstructive airways disease (Acute) Flu (Acute) SIRS (systemic inflammatory response syndrome) (Acute) - VTE Risk Labs: VTE Related Lab Results Hgb 13.0 g/dL (14.1-18.0) L D 05/03/21 05:32 Hct 38.8 % (42.0-52.0) L 05/03/21 05:32 Plt Count 231 K/mm3 (142-424) 05/03/21 05:32 BUN 26 mg/dl (9-20) H 05/03/21 05:32 Creatinine 0.80 mg/dl (0.66-1.25) D 05/03/21 05:32 Estimated Creat Clear 67 mL/min (50-200) 05/03/21 05:32 Clinical Trial Participant: No - Prophylaxis VTE Prophylaxis Ordered?: Yes Types of VTE Prophylaxis: TEDS Knee High
--- NOTE | 2021-05-03 07:50 | HMH.PHAINT ---
HOME MEDICATION LIST VERIFIED USING LIST FROM CLINIC PHARMACY
--- NOTE | 2021-05-03 08:25 | CA_ITS ---
APPROVED REPORT EXAM: Comprehensive 2D, Doppler, and color-flow Echocardiogram [employer]: Ana Self RT(R) Ht: 5 ft 11 in Wt: 148lbs BSA: 1.85 BP: 155/82 mmHg Indications: COPD, flu, cough, CAD, ex smoker, CHENG, SOB 2D Dimensions LVOT 2.00 cm (M/F) 1.5-2.5 LA Volume 14.20 mL LA Volume Index 7.67 mL/m2 (M/F) 16-34 M-Mode Dimensions RVDd 2.81 cm (0.9-2.6) LA Diam 3.35 cm (1.9-4.0) LVDd 4.07 cm (3.5-5.7) Ao Diam 3.01 cm (2.0-3.7) LVDs 2.17 cm (3.5-5.7) IVSd 0.99 cm (0.6-1.1) PWd 0.68 cm (0.6-1.1) EF (Teich) 78.50% FS 46.70% EDV (Teich) 72.90 mL ESV (Teich) 15.70 mL LV Diastology E Decel Time 150.00 (160-240 msec) E/A Ratio 0.8 MED E' 7.50 (< 7 cm/sec) E'/MED E' Ratio 10.19 (>14) LAT E' 8.40 (<10 cm/sec) E/LAT E' Ratio 9.10 (>14) Mitral Valve MV E Max Hardy. 76.00 (40-130 cm/s) MV A Velocity 95.00 (40-130 cm/s) E/A Ratio 0.81 MV Decel. Time 150.00 (160-240 ms) MV PHT 44.00 ms Tricuspid Valve TR P. Velocity 288.00 cm/s RAP Estimate 10.00 mmHg RVSP 43.20 mmHg Left Ventricle Left atrium is mildly enlarged, left ventricle is normal size, mild concentric left ventricular hypertrophy, estimated ejection fraction 55% with no regional wall motion abnormality, grade 1 diastolic dysfunction seen without tissue Doppler evidence of raise left atrial pressure. Right Ventricle Right atrium and right ventricle qualitatively mildly enlarged with normal contractility. Aortic Valve Aortic valve is minimally thickened and fibrosed, there is no aortic stenosis or aortic insufficiency. Mitral Valve Mitral valve is grossly normal, there is trace mitral regurgitation. Tricuspid Valve Tricuspid valve grossly normal, there is trace tricuspid regurgitation, tricuspid regurgitation jet velocity is inadequate for calculation of the right ventricular systolic pressure. Pulmonic Valve Pulmonic valve is poorly visualized. Great Vessels Aortic root is normal size. Inferior vena cava is normal size with normal inspiratory collapse. Pericardium No significant pericardial effusion noted. Conclusion 1. Mild biatrial alignment, normal left ventricular size, mild concentric left ventricular hypertrophy, visually estimated ejection fraction 55% with no regional wall motion abnormality, grade 1 diastolic dysfunction seen without tissue Doppler evidence of raise left atrial pressure. 2. Mildly enlarged right ventricle with normal contractility. 3. Trace mitral and tricuspid regurgitation. 4. No significant pericardial effusion. 5. Inferior vena cava is normal size with normal inspiratory collapse. Electronically signed by : Wojciech Miranda MD 05/03/2021 15:57:40
--- NOTE | 2021-05-03 08:31 | HMH.PULMCON ---
*Admission Date: 05/03/21 [facility] History Medical History: Reports:: Asthma, Carotid Stenosis, Chronic Obstructive Pulmonary Disease (COPD), Coronary Artery Disease, Hiatal Hernia, Hyperlipidemia, Hypertension, MRSA Denies:: Cancer, Diabetes Mellitus Type 1, Diabetes Mellitus Type 2, Seizures *Have you ever received a pneumonia vaccine?: Yes *Have you received a flu vaccine this season?: No Other Medical History: Reports: Arthritis Laterality Cases: Bilateral: Arthroscopy Knee, Tonsillectomy Other Surgeries: Yes: Hernia Repair, Other Amputation: No Fractures: No - *Social History Smoking Status: Former smoker Tobacco Type: cigarettes # Packs/Day (cigarettes): 1 Alcohol Intake: never Alcohol Intake Frequency:: holidays/special occasions only Substance Use Type: denies use *Occupational Status:: retired Housing: house Household Members: spouse *Travel in the last 8 weeks: None Family Hx:: Coronary Artery Disease, Diabetes, Hyperlipidemia, Hypertension ROS - Cons Reports anorexia, Reports body ache(s), Reports chills, Reports fever(s) - Eyes Denies change in vision - ENT Reports nasal congestion, Reports nasal discharge - Card Reports shortness of breath, Reports shortness of breath with activity - Resp Respiratory: Reports chest congestion, Reports cough, Reports dyspnea on exertion, Reports excessive phlegm production, Denies pain on inspiration, Denies pain with cough, Reports cough with sputum production, Reports wheezing - GI Gastrointestingal: Denies: abdominal pain - [place] Musculoskeletal: Reports back pain - Psych Denies thoughts of hurting/killing others, Denies thoughts of hurting/killing yourself Meds Home Medications Medication Instructions Recorded Confirmed Type aspirin 81 mg tablet,delayed 81 mg PO DAILY 03/02/17 05/02/21 History release carvediloL [Carvedilol 12.5mg Tab] 12.5 mg PO BID 03/06/20 05/02/21 History lisinopriL [Lisinopril 20mg Tab] 20 mg PO BID 03/06/20 05/02/21 History fluticasone furoate 200 1 inh INHALATION DAILY each 04/27/20 05/03/21 History mcg-vilanterol 25 mcg/dose inhalation powder ipratropium 0.5 mg-albuterol 3 mg 3 ml INHALATION Q6H PRN #90 ml 03/19/21 03/24/22 Rx (2.5 mg base)/3 mL nebulization soln Atorvastatin Calcium [Lipitor 80mg 80 mg PO DAILY 06/20/20 05/02/21 History Tablet*] Allergies Allergy/AdvReac Type Severity Reaction Status Date / Time No Known Allergies Allergy Verified 06/20/20 13:09 Exam - Constitutional Constitutional:: Present: no acute distress, comfortable - HENMT Exam HENMT: Present: normocephalic, atraumatic - Eye Exam Eyes:: Present: normal appearance both eyes and related structures - Neck Exam Neck:: Present: normal visual inspection - Respiratory Exam Respiratory:: Present: able to speak in complete sentences, respiratory distress, wheezing. Absent: accessory muscle use - Cardiovascular Exam Cardiac:: Present: S1, S2 - GI Exam GI:: Present: soft - Skin Exam Skin: Present: warm, no rash - Neurological Exam Neurological: Present: alert, awake, normal cognition - Extremities Exam Extremities: Present: no cyanosis, no clubbing, no edema Internal Medicine - CN: Reslt - Labs CBC & Chem 7: 05/03/21 05:32 05/03/21 05:32 Labs: Short CBC 05/02/21 05/03/21 Range/Units 20:35 05:32 WBC 11.3 H 8.6 (4.8-10.8) K/mm3 Hgb 15.5 13.0 L D (14.1-18.0) g/dL Hct 46.4 38.8 L (42.0-52.0) % Plt Count 274 231 (142-424) K/mm3 BMP 05/02/21 05/03/21 20:35 05:32 Sodium 137 136 Potassium 4.5 4.6 Chloride 100 104 Carbon Dioxide 30 25 BUN 22 H 26 H Creatinine 1.20 0.80 D Glucose 94 129 H D Calcium 8.5 8.0 L Cardiac Enzymes 05/02/21 05/03/21 05/03/21 Range/Units 20:35 00:24 03:30 Troponin I < 0.01 < 0.01 < 0.01 (0.00-0.034) ng/ml Liver Function 05/02/21 Range/Units 20:35 Total Bilirubin 0.7 (0.2-1.3) mg/dl AST 36 (17-59
[2021-05-03 08:39] LABS: Lymphocytes % 2 % (10-50); Monocytes % 1 % (2-9); Neutrophils % 97 % (42-76); Platelet Estimate Normal; Total Cells Counted 100
--- NOTE | 2021-05-03 08:47 | HMH.HP ---
*Admission Date: 05/03/21 <Melina Sherwood 05/03/21 08:55> *Chief complaint: shortness of breath, cough, fever <Melina Sherwood 05/03/21 08:55> *History of present illness: Mr. Sosa is a 66-year-old male with a history of asthma, history of MRSA pneumonia, and history of Covid. 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 Within a few days he was running fever and coughing. He began getting progressively more short of breath. He states he has been unable to eat for the last 5 days because when he eats, it causes more shortness of breath. He presented to the emergency room and his flu test was positive. His BNP was also elevated. He was admitted with SIRS and flu along with a COPD exacerbation. An echo was ordered due to his elevated BNP and pulmonology was consulted. <Melina Sherwood 05/03/21 08:55> [facility] History I have reviewed the patient's past medical history: Yes <Melina Sherwood 05/03/21 08:55> Medical History: Reports:: Asthma, Carotid Stenosis, Chronic Obstructive Pulmonary Disease (COPD), Coronary Artery Disease, Hiatal Hernia, Hyperlipidemia, Hypertension, MRSA Denies:: Cancer, Diabetes Mellitus Type 1, Diabetes Mellitus Type 2, Seizures <Melina Sherwood 05/03/21 08:55> *Have you ever received a pneumonia vaccine?: Yes <Melina Sherwood 05/03/21 08:55> *Have you received a flu vaccine this season?: No <Melina Sherwood 05/03/21 08:55> Other Medical History: Reports: Arthritis <Melina Sherwood 05/03/21 08:55> Laterality Cases: Bilateral: Arthroscopy Knee, Tonsillectomy <Melina Sherwood 05/03/21 08:55> Other Surgeries: Yes: Hernia Repair, Other <Melina Sherwood 05/03/21 08:55> Amputation: No <Melina Sherwood 05/03/21 08:55> Fractures: No <Melina Sherwood 05/03/21 08:55> - *Social History Smoking Status: Former smoker <Melina Sherwood 05/03/21 08:55> Tobacco Type: cigarettes <ElroyjameelMelina Keeley 05/03/21 08:55> # Packs/Day (cigarettes): 1 <ElroyjameelMelina Keeley 05/03/21 08:55> Alcohol Intake: never <ElroyjameelMelina Keeley 05/03/21 08:55> Alcohol Intake Frequency:: holidays/special occasions only <ElroyMelina jorgensen 05/03/21 08:55> Substance Use Type: denies use <Juliocesar Sherwooda Keeley 05/03/21 08:55> *Occupational Status:: retired <ElroyjameelMelina Keeley 05/03/21 08:55> Housing: house <ElroyMelina jorgensen 05/03/21 08:55> Household Members: spouse <Melina Sherwood 05/03/21 08:55> *Travel in the last 8 weeks: None <Melina Sherwood 05/03/21 08:55> Family Hx:: Coronary Artery Disease, Diabetes, Hyperlipidemia, Hypertension <Melina Sherwood 05/03/21 08:55> Review of Systems - Constitutional Reports chills, Reports fever(s), Reports weight loss, Denies body ache(s) <Melina Sherwood 05/03/21 08:55> - Eyes Denies blurry vision, Denies double vision <KaelaMelina 05/03/21 08:55> - ENT Reports nasal congestion, Reports sore throat <KaelaMelina 05/03/21 08:55> - *Cardiovascular Reports shortness of breath, Denies chest pain <Melina Sherwood 05/03/21 08:55> - *Respiratory Reports cough, Reports shortness of breath, Reports wheezing <KaelaMelina 05/03/21 08:55> - *Gastrointestinal Denies abdominal pain, Denies loose stools, Denies nausea, Denies vomiting <Melina Sherwood 05/03/21 08:55> - *Genitourinary Denies difficulty urinating, Denies painful urination <Melina Sherwood 05/03/21 08:55> - *Musculoskeletal Denies joint pain, Denies body aches <Melina Sherwood 05/03/21 08:55> - *Neurologic Reports headache(s), Reports dizziness, Reports weakness, Denies localized weakness <Melina Sherwood - 05/03/21 08:55> Meds Home Medications Medication Instructions Recorded Confirmed Type aspirin 81 mg tablet,delayed 81 mg PO DAILY 03/02/17 05/02/21 History release carvediloL [Carvedilol 12.5mg Tab] 12.5 mg PO BID 03/06/20 05/02/21 History lisinopriL [Lisinopril 20mg Tab] 20 mg PO BID 03/06/20 05/02/21 History fluticasone furoate 200 1 inh INHALATION D
--- NOTE | 2021-05-03 09:57 | PC.NURSE ---
patients weight patient weighs 148.9 lbs as of 0800 05/03/21
--- NOTE | 2021-05-03 10:40 | CT_ITS ---
FINAL REPORT TECHNIQUE: Thin section axial CT images were obtained from the lung apices to the upper abdomen. IV contrast was administered. MIP 3-D reformats were obtained. This study was performed with techniques to keep radiation doses as low as reasonably achievable (ALARA). Individualized dose reduction techniques using automated exposure control or adjustment of mA and/or kV according to the patient's size were employed. CLINICAL HISTORY: Hypoxia FINDINGS: The mediastinal vasculature is adequately opacified. The heart size is normal. There is no adenopathy. There is no filling defect to suggest PE. There is no aortic dissection. There is no pericardial effusion. There are moderate changes of centrilobular emphysema. There is a 6 mm density in the periphery of the right upper lobe on image 57 of series 5. A 9 mm density is seen in the posterior left upper lobe on image 81 of series 5. No pleural effusion. Limited images of the upper abdomen demonstrate a benign-appearing cyst in the left kidney. The gallbladder is distended. There is a 4 mm nonobstructing stone in the lower pole of the right kidney. IMPRESSION: No pulmonary embolism or aortic dissection. Right upper lobe and left upper lobe densities as described. Recommend follow-up CT in 6 months. Reviewed, Interpreted and Dictated by Ricky Lynne MD Transcribed by Ernst Beth Authenticated by Ricky Lynne MD on 05/03/2021 12:38:22 PM [facility]
[2021-05-04] VITALS (9 sets, daily range): BP systolic 101–139; BP diastolic 61–76; PULSE 73–89; RESP 16–20; TEMP 36.5–36.9; O2SAT 91–99; BMI 211.1
--- NOTE | 2021-05-04 08:45 | P.PN_ITS ---
Internal Medicine - PN: Subj *Date: 05/04/21 *Time: 08:45 Interval history: His breathing feels better. He still has significant cough which is mostly dry. He has less short of breath. Appetite is improved some. Exam Vital signs and Labs for Last 24 Hours: Temp Pulse Resp BP Pulse Ox 98.0 F 85 16 113/61 96 05/04/21 07:49 05/04/21 07:51 05/04/21 07:49 05/04/21 07:49 05/04/21 07:51 Laboratory Results - last 24 hr 05/03/21 09:15: D-Dimer 1.30 H I & O for Last 24 hours: Intake & Output 05/01/21 05/02/21 05/03/21 05/04/21 11:59 11:59 11:59 11:59 Intake Total 120 / 120 300 / 300 Output Total 150 / 150 1250 / 1250 Balance -30 / -30 -950 / -950 Weight 146 lb 7 oz 1508 lb 7.313 oz Microbiology Reports for the Last 24 Hours: Microbiology 05/03/21 00:16 Sputum - Expectorated Sputum Gram Stain - Final 05/03/21 00:16 Sputum - Expectorated Sputum Sputum Culture - Preliminary Narrative: He is sitting up in bed. Alert and in no distress. He is wearing his supplemental oxygen. Chest with generally diminished breath sounds with tight wheezes bilaterally. No rales. Heart is regular. Abdomen is thin, soft, nondistended and nontender. Extremities no edema. Assessment and Plan (1) Flu Status: Acute Category: Medical Code(s): J11.1 - Influenza due to unidentified influenza virus with other respiratory manifestations (2) Acute exacerbation of chronic obstructive airways disease Status: Acute Category: Medical Code(s): J44.1 - Chronic obstructive pulmonary disease with (acute) exacerbation (3) Weight loss Status: Acute Category: Medical Code(s): R63.4 - Abnormal weight loss (4) ASCVD (arteriosclerotic cardiovascular disease) Status: Acute Category: Medical Code(s): I25.10 - Atherosclerotic heart disease of [place] coronary artery without angina pectoris (5) Elevated brain natriuretic peptide (BNP) level Status: Acute Category: Medical Code(s): R79.89 - Other specified abnormal findings of blood chemistry - Assessment and plan all Dx Assessment and Plan for all problems:: Pulmonology consult noted. CTA was negative for pulmonary embolus. Emphysematous changes noted. Nodule in the right upper lobe in the left upper lobe with recommendation for 6-month follow-up. Echo shows grade 1 diastolic dysfunction. Continue per orders.
[2021-05-05] VITALS (9 sets, daily range): BP systolic 126–165; BP diastolic 72–93; PULSE 66–82; RESP 16–18; TEMP 36.4–36.9; O2SAT 90–98; BMI 21.9
--- NOTE | 2021-05-05 09:30 | HMH.ACPN2 ---
Internal Medicine - PN: Subj *Date: 05/05/21 *Time: 09:30 Interval history: He had a fairly good day yesterday but did not sleep well last night and feels more tired and short of breath this morning. Cough has improved some. He is eating more. Exam Vital signs and Labs for Last 24 Hours: Temp Pulse Resp BP Pulse Ox 97.9 F 82 18 129/75 95 05/05/21 08:00 05/05/21 08:00 05/05/21 08:00 05/05/21 08:00 05/05/21 08:00 I & O for Last 24 hours: Intake & Output 05/02/21 05/03/21 05/04/21 05/05/21 11:59 11:59 11:59 11:59 Intake Total 120 / 120 660 / 660 2150 / 2150 Output Total 150 / 150 1750 / 1750 1100 / 1100 Balance -30 / -30 -1090 / -1090 1050 / 1050 Weight 146 lb 7 oz 1508 lb 7.313 oz 156 lb 6.4 oz Microbiology Reports for the Last 24 Hours: Microbiology 05/03/21 00:16 Sputum - Expectorated Sputum Gram Stain - Final 05/03/21 00:16 Sputum - Expectorated Sputum Sputum Culture - Final Normal Respiratory Fiona 05/02/21 23:13 Blood Blood Culture - Preliminary NO GROWTH AFTER 48 HOURS 05/02/21 23:13 Blood Blood Culture - Preliminary NO GROWTH AFTER 48 HOURS Narrative: No respiratory distress. Color is normal. Chest with generally diminished breath sounds and tight wheezes. Heart is regular. Extremities no edema. Assessment and Plan (1) Flu Status: Acute Category: Medical Code(s): J11.1 - Influenza due to unidentified influenza virus with other respiratory manifestations (2) Acute exacerbation of chronic obstructive airways disease Status: Acute Category: Medical Code(s): J44.1 - Chronic obstructive pulmonary disease with (acute) exacerbation (3) Weight loss Status: Acute Category: Medical Code(s): R63.4 - Abnormal weight loss (4) ASCVD (arteriosclerotic cardiovascular disease) Status: Acute Category: Medical Code(s): I25.10 - Atherosclerotic heart disease of [place] coronary artery without angina pectoris (5) Elevated brain natriuretic peptide (BNP) level Status: Acute Category: Medical Code(s): R79.89 - Other specified abnormal findings of blood chemistry - Assessment and plan all Dx Assessment and Plan for all problems:: Continue per orders. Decrease IV fluids.
--- NOTE | 2021-05-05 16:00 | PC.NURSE ---
COurtesy ren ang. Ice water given Trash taken out
--- NOTE | 2021-05-05 18:51 | PC.NURSE ---
Pt has proned a couple times today and states he is feeling better than he was this am.
[2021-05-06] VITALS: BP 161/92; PULSE 73; RESP 18; TEMP 36.4; O2SAT 96
[2021-05-06 00:46] VITALS: PULSE 76; PULSE 78
[2021-05-06 04:00] VITALS: BP 152/85; PULSE 66; RESP 18; TEMP 36.5; O2SAT 98
[2021-05-06 05:00] VITALS: BMI 20.7
[2021-05-06 06:35] VITALS: PULSE 68; PULSE 72; O2SAT 98
[2021-05-06 08:00] VITALS: BP 143/74; PULSE 79; RESP 16; TEMP 36.8; O2SAT 91
--- NOTE | 2021-05-06 08:02 | HMH.ACPN2 ---
<Ladonna Hernandez - Last Filed: 05/06/21 08:02> Internal Medicine - PN: Subj *Date: 05/06/21 *Time: 08:02 Interval history: Patient states he is feeling good. He is ready to go home. He slept some during the night. He ate breakfast without difficulty. He states his breathing status is at baseline. He still has some cough but is minimal. He denies chest pain. Bowels are moving. He is voiding QS. He has been out of bed and tolerated well. Exam Vital signs and Labs for Last 24 Hours: Temp Pulse Resp BP Pulse Ox 97.7 F 68 18 152/85 H 98 05/06/21 04:00 05/06/21 06:35 05/06/21 04:00 05/06/21 04:00 05/06/21 06:35 I & O for Last 24 hours: Intake & Output 05/03/21 05/04/21 05/05/21 05/06/21 11:59 11:59 11:59 11:59 Intake Total 120 / 120 660 / 660 2510 / 2510 600 / 600 Output Total 150 / 150 1750 / 1750 1100 / 1100 800 / 800 Balance -30 / -30 -1090 / -1090 1410 / 1410 -200 / -200 Weight 146 lb 7 oz 1508 lb 7.313 oz 156 lb 6.4 oz 148 lb 8 oz Microbiology Reports for the Last 24 Hours: Microbiology 05/03/21 00:16 Sputum - Expectorated Sputum Gram Stain - Final 05/03/21 00:16 Sputum - Expectorated Sputum Sputum Culture - Final Normal Respiratory Fiona - Constitutional no acute distress (Sitting up in the bed after eating breakfast. No dyspnea) - *Routine Respiratory Exam Present: wheezes (Few scattered wheezes posteriorly) - *Routine Cardiovascular Exam Present: RRR - *Routine Abdominal Exam Present: soft, normoactive bowel sounds. Absent: tenderness - *Routine Extremities Exam Absent: edema, calf tenderness - *Routine Neurological Exam Present: alert, oriented X3 Assessment and Plan (1) Flu Status: Acute Category: Medical Code(s): J11.1 - Influenza due to unidentified influenza virus with other respiratory manifestations (2) Acute exacerbation of chronic obstructive airways disease Status: Acute Category: Medical Code(s): J44.1 - Chronic obstructive pulmonary disease with (acute) exacerbation (3) Weight loss Status: Acute Category: Medical Code(s): R63.4 - Abnormal weight loss (4) ASCVD (arteriosclerotic cardiovascular disease) Status: Acute Category: Medical Code(s): I25.10 - Atherosclerotic heart disease of [place] coronary artery without angina pectoris (5) Elevated brain natriuretic peptide (BNP) level Status: Acute Category: Medical Code(s): R79.89 - Other specified abnormal findings of blood chemistry - Assessment and plan all Dx Assessment and Plan for all problems:: Cultures are negative thus far. Patient is ready for discharge to home. Has O2 and neb machine at home. <Michael Handy - Last Filed: 05/06/21 12:25> Internal Medicine - PN: Subj *Date: 05/06/21 *Time: 12:24 Exam Vital signs and Labs for Last 24 Hours: Temp Pulse Resp BP Pulse Ox 98.3 F 79 16 143/74 H 91 L 05/06/21 08:00 05/06/21 08:00 05/06/21 08:00 05/06/21 08:00 05/06/21 08:00 I & O for Last 24 hours: Intake & Output 05/04/21 05/05/21 05/06/21 05/07/21 11:59 11:59 11:59 11:59 Intake Total 660 / 660 2510 / 2510 600 / 600 Output Total 1750 / 1750 1100 / 1100 800 / 800 Balance -1090 / -1090 1410 / 1410 -200 / -200 Weight 1508 lb 7.313 oz 156 lb 6.4 oz 148 lb 8 oz Assessment and Plan (1) Flu Status: Acute Category: Medical Code(s): J11.1 - Influenza due to unidentified influenza virus with other respiratory manifestations (2) Acute exacerbation of chronic obstructive airways disease Status: Acute Category: Medical Code(s): J44.1 - Chronic obstructive pulmonary disease with (acute) exacerbation (3) Weight loss Status: Acute Category: Medical Code(s): R63.4 - Abnormal weight loss (4) ASCVD (arteriosclerotic cardiovascular disease) Status: Acute Category: Medical Code(s): I25.10 - Atherosclerotic heart disease of [place] coronary artery without angina p
--- NOTE | 2021-05-06 09:21 | HMH.PHAINT ---
I spoke with the patient today about his medication list. Went over the new medications the patient is being sent home on and where the patient could pick them up at. Also went over the medications that the patient was to continue. When we spoke, the patient did not have any questions or concerns. Patient was provided a copy of the medication list.
--- NOTE | 2021-05-06 09:35 | P.PN_ITS ---
Internal Medicine - PN: Subj *Date: 05/06/21 *Time: 09:35 Assessment and Plan (1) Flu Status: Acute Category: Medical Code(s): J11.1 - Influenza due to unidentified influenza virus with other respiratory manifestations (2) Acute exacerbation of chronic obstructive airways disease Status: Acute Category: Medical Code(s): J44.1 - Chronic obstructive pulmonary disease with (acute) exacerbation (3) Weight loss Status: Acute Category: Medical Code(s): R63.4 - Abnormal weight loss (4) ASCVD (arteriosclerotic cardiovascular disease) Status: Acute Category: Medical Code(s): I25.10 - Atherosclerotic heart disease of [place] coronary artery without angina pectoris (5) Elevated brain natriuretic peptide (BNP) level Status: Acute Category: Medical Code(s): R79.89 - Other specified abnormal findings of blood chemistry - Assessment and plan all Dx Assessment and Plan for all problems:: #Influenza pneumonia: #Acute on chronic hypoxic respiratory failure Mr. Sosa is a 66-year-old male prior smoker greater than [id number] smoking history, last smoked 2004 history of COVID-19 pneumonia in Feb 2020, asthma COPD overlap syndrome resented to the hospital with worsening respiratory distress. To be tested positive. Patient with symptoms for the last week associated with subjective fevers chills and productive phlegm. No known sick contacts. Chest x-ray no acute pulmonary infiltrates, No dense consolidation noted. ABG on admission did not show any evidence of hypercarbia, hypoxia with a PO2 of 69.4. Patient was initiated on ceftriaxone and azithromycin along with nebulization therapy, Tamiflu and steroids. Interval update: Patient CT performed did not show any evidence of pulmonary embolism, showed groundglass opacities, no dense consolidation. Respiratory status improving over the weekend. Cultures no growth 48 hours. Sputum culture normal respiratory [place]. Plan: -Continue oxygen therapy to maintain O2 saturation goal of 92% and above -Continue Oseltamivir x 5 days -Ceftriaxone & azithromycin x 5 days for possible community-acquired pneumonia. Can be weaned to levofloxacin upon discharge -DuoNebs every 6 hours scheduled along budesonide every 12 scheduled Patient was last seen in clinic in April 2020, supposed to have PFT 6-minute walk testing and supposed to get a low-dose CT screening in February 2021 that did not happen as patient has multiple no-shows. CTA performed on this admission did not show any new or worsening pulmonary nodules. We will continue to follow.
--- NOTE | 2021-05-06 15:12 | HMH.DCSUM ---
General - General Admission date:: 05/03/21 <Michael Handy - 05/28/21 08:38> 05/03/21 <Ladonna Hernandez - 05/06/21 15:35> Discharge date: 05/06/21 <Ladonna Hernandez - 05/06/21 15:35> HPI HPI: Mr. Sosa is a 66-year-old male with a history of asthma, history of MRSA pneumonia, and history of Covid. 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 Within a few days he was running a fever and coughing. He began getting progressively more short of breath. He stated he had been unable to eat for the previous 5 days because when he ate, it caused more shortness of breath. He presented to the emergency room and with evaluation his flu test was positive. His BNP was also elevated. He was admitted with SIRS and flu along with a COPD exacerbation. An echo was ordered due to his elevated BNP and pulmonology was consulted. <Ladonna Hernandez - 05/06/21 15:35> Hospital Course Hospital Course: Chest x-ray did show possible atypical pneumonia. Patient was started on duo nebs, Zithromax, budesonide nebs, Rocephin, and Tamiflu on admission. He was seen by pulmonology who agreed with this plan. The patient did feel better each day. The cough did decrease with less shortness of breath. He was able to begin to eat. IV fluids were decreased. On 05/06/2021 patient states he felt good. He was ready to go home. Thus he was discharged home in stable and satisfactory condition. Meds as per medication sheet. He was to continue with Tamiflu, Zithromax, and Ceftin as well as the inhaler.. He is to follow-up with Dr. Handy on May 13, 2021. <Ladonna Hernandez - 05/06/21 15:35> Objective Vital signs: Temp Pulse Resp BP Pulse Ox 98.3 F 79 16 143/74 H 91 L 05/06/21 08:00 05/06/21 08:00 05/06/21 08:00 05/06/21 08:00 05/06/21 08:00 <Michael Handy - 05/28/21 08:38> Temp Pulse Resp BP Pulse Ox 98.3 F 79 16 143/74 H 91 L 05/06/21 08:00 05/06/21 08:00 05/06/21 08:00 05/06/21 08:00 05/06/21 08:00 <Ladonna Hernandez - 05/06/21 15:35> Narrative: Exam Vital signs and Labs for Last 24 Hours: Temp Pulse Resp BP Pulse Ox 97.7 F 68 18 152/85 H 98 05/06/21 04:00 05/06/21 06:35 05/06/21 04:00 05/06/21 04:00 05/06/21 06:35 I & O for Last 24 hours: Intake & Output 05/03/21 05/04/21 05/05/21 05/06/21 11:59 11:59 11:59 11:59 Intake Total 120 / 120 660 / 660 2510 / 2510 600 / 600 Output Total 150 / 150 1750 / 1750 1100 / 1100 800 / 800 Balance -30 / -30 -1090 / -1090 1410 / 1410 -200 / -200 Weight 146 lb 7 oz 1508 lb 7.313 oz 156 lb 6.4 oz 148 lb 8 oz Microbiology Reports for the Last 24 Hours: Microbiology 05/03/21 00:16 Sputum - Expectorated Sputum Gram Stain - Final 05/03/21 00:16 Sputum - Expectorated Sputum Sputum Culture - Final Normal Respiratory Fiona - Constitutional no acute distress (Sitting up in the bed after eating breakfast. No dyspnea) - *Routine Respiratory Exam Present: wheezes (Few scattered wheezes posteriorly) - *Routine Cardiovascular Exam Present: RRR - *Routine Abdominal Exam Present: soft, normoactive bowel sounds. Absent: tenderness - *Routine Extremities Exam Absent: edema, calf tenderness - *Routine Neurological Exam Present: alert, oriented X3 <Ladonna Hernandez - 05/06/21 15:35> Results Completed studies during hospitalization [Text1]: 05/02/2021 CXR IMPRESSION: Streaky basilar airspace opacities which are likely atelectatic however of chest atypical pneumonitis should be clinically excluded. 05/03/2021 ECHO Conclusion 1. Mild biatrial alignment, normal left ventricular size, mild concentric left ventricular hypertrophy, visually estimated ejection fraction 55% with no regional wall motion abnormality, grade 1 diastolic dysfunction seen without tissue Doppler evidence of raise left atrial pressure.
--- NOTE | 2021-05-08 12:03 | CARE MANAGER ---
Attempted to call patient x 2 days to discuss post discharge status. Message was left with return phone number on his . He has not returned call.
== END 2021-05-06 09:58 | disposition home or self-care (01) ==
LOC: ER 20:26 → 2ND 23:05
PROVIDERS: Internal Medicine Pulmonary Disease; Admitting Provider Family Medicine; Emergency Provider Emergency Medicine; PCP Family Medicine; Visit Provider Family Medicine
DX: J44.1 Chronic obstructive pulmonary disease with (acute) exacerbation (principal); Z20.822 Contact with and (suspected) exposure to COVID-19; J11.1 Influenza due to unidentified influenza virus with other respiratory manifestations; I25.10 Atherosclerotic heart disease of native coronary artery without angina pectoris; I10 Essential (primary) hypertension; Z82.49 Family history of ischemic heart disease and other diseases of the circulatory system; J96.21 Acute and chronic respiratory failure with hypoxia; Z86.16 Personal history of COVID-19; R06.09 Other forms of dyspnea; Z79.899 Other long term (current) drug therapy
CPT/HCPCS: G0378; 36415; 71046; 71275; 80048; 80053; 81001; 82150; 82803; 83605; 83690; 83735; 83880; 84484; 85007; 85025; 85378; 87040; 87070; 87205; 93005; 93306; 94640; 94761; 96365; 96367; 96375; 99285; C9803; J0456; J0696; Q9967; U0003; U0005

== ENCOUNTER → 2022-05-01 11:50 | Outpatient (CLI) | payer MEDICARE, SELFPAY ==
--- NOTE | 2022-05-01 12:04 | XR_ITS ---
FINAL REPORT CLINICAL HISTORY: COUGH COMPARISON: 05/03/2021 FINDINGS: 2 views of the chest were obtained . The heart is normal in size. The mediastinum is within normal limits. The lungs are hyperinflated. Calcified granulomas are seen in the right mid lung. Lungs are otherwise clear. There is no pneumothorax. Osseous structures are unremarkable. IMPRESSION: No acute cardiopulmonary process. Reviewed, Interpreted and Dictated by Ricky Lynne MD Transcribed by Melia Jang Authenticated and [facility] [place]
[2022-05-01 12:51] LABS: Basophils # 0.1 K/mm3 (0-0.2); Basophils % 1.1 % (0.1-2.0); Eosinophils # 1.1 K/mm3 (0.0-0.4); Eosinophils % 10.7 % (0.1-12.0); Hematocrit 48.3 % (42.0-52.0); Hemoglobin 15.9 g/dL (14.1-18.0); Lymphocytes # 2.5 K/mm3 (0.7-4.5); Lymphocytes % 25.7 % (10-50); Mean Corpuscular Volume 94.1 fl (80-94); Mean Platelet Volume 7.5 fl (7.4-10.4); Monocytes # 0.7 K/mm3 (0.1-1.0); Monocytes % 7.5 % (1.7-9.3); Neutrophils # 5.4 K/mm3 (1.8-7.8); Neutrophils % 55.1 % (37.0-80.0); Platelet Count 184 K/mm3 (142-424); Red Blood Count 5.13 M/mm3 (4.60-6.20); Red Cell Distribution Width 13.5 % (11.5-17.5); White Blood Count 9.8 K/mm3 (4.8-10.8)
[2022-05-01 13:35] LABS: Alanine Aminotransferase 17 U/L (12-78); Albumin/Globulin Ratio 1.7 (1.1-1.8); Alkaline Phosphatase 77 U/L (38-126); Aspartate Amino Transferase 34 U/L (17-59); Bilirubin,Total 0.6 mg/dl (0.2-1.3); Blood Urea Nitrogen 27 mg/dl (9-20); Calcium 8.8 mg/dl (8.4-10.2); Carbon Dioxide 34 mmol/L (22.0-30.0); Chloride 102 mmol/L (98-107); Estimated Glomerular Filt Rate 96 ml/min (>60); GFR (African American) 116 ML/MIN (>60); Globulin 2.3 g/dL (1.3-3.2); Glucose 103 mg/dl (74-100); Sodium 139 mmol/L (136-145); Total Protein,Serum 6.3 g/dl (6.3-8.2)
[2022-05-01 14:00] LABS: NT Pro Brain Natriuretic Pep. 60.1 pg/mL (0-125)
[2022-05-01 14:06] LABS: Thyroid Stimulating Hormone 0.92 uIU/mL (0.465-4.68)
== END ==
LOC: RAD 11:58
PROVIDERS: PCP Nurse Practitioner Family; Visit Provider Nurse Practitioner Family
DX: R06.02 Shortness of breath (principal); R63.4 Abnormal weight loss; J44.1 Chronic obstructive pulmonary disease with (acute) exacerbation; R23.3 Spontaneous ecchymoses
CPT/HCPCS: 36415; 71046; 80053; 83880; 84443; 85025

== ENCOUNTER → 2022-11-21 15:41 | Outpatient (CLI) | payer MEDICARE, SELFPAY ==
--- NOTE | 2022-11-21 15:45 | XR_ITS ---
FINAL REPORT CLINICAL HISTORY: cough, shortness of breath, COPD former smoker x 34 yrs, quit 2002 COMPARISON: 05/01/2022 FINDINGS: Two views of the chest were obtained. There is hyperinflation compatible with chronic obstructive pulmonary disease. The heart size and pulmonary vascularity are within normal limits. The mediastinum is normal. No acute pulmonary abnormality is identified. There is no pneumothorax. The bony thorax is intact. IMPRESSION: No active cardiopulmonary disease. Reviewed, Interpreted and Dictated by Ke Elizabeth III, MD Transcribed by Elizabeth Tam Authenticated and [facility]
== END ==
LOC: RAD 15:42
PROVIDERS: PCP Nurse Practitioner Family; Visit Provider Nurse Practitioner Family
DX: J44.9 Chronic obstructive pulmonary disease, unspecified (principal); Z87.891 Personal history of nicotine dependence
CPT/HCPCS: 71046

== ENCOUNTER 2024-02-18 09:12 | Day surgery (SDC) | payer MEDICARE, SELFPAY ==
[2024-02-17 11:06] VITALS: BMI 20.5
[2024-02-18 09:36] VITALS: BP 168/103; PULSE 77; RESP 18; TEMP 36.6; O2SAT 93
[2024-02-18] MEDS: LACTATED RINGERS 1000ML 1,000 ML 25 ML IV (09:46)
--- NOTE | 2024-02-18 09:46 | P.PNANES_ITS ---
[facility] Disclaimer: The information contained in this section may have been updated after the patient was seen, as this information can be updated by other users. Medical History COPD (chronic obstructive pulmonary disease) CAD (coronary artery disease) Hypercholesterolemia Hypertension Surgical History S/P colonoscopic polypectomy H/O hernia repair H/O heart artery stent S/P cardiac cath History of tonsillectomy Family History Mother Cancer Social History (Updated 02/18/24 @ 09:40 by Verna Andrews RN) Smoking Status: Former smoker tobacco type: cigarettes packs per day: 1 alcohol intake: never counseling provided: none substance use type: denies use current occupational status: retired Travel in the last 8 weeks: None household members: spouse housing: house caffeine: No Have you lived/traveled outside US in past 30 days?: No Contact w/someone who lives/traveled outside US past 30 days?: No Exposure to someone with infectious disease in past 14 days?: No Do you have a fever (greater than 100.4 F or 38 C)?: No Have you tested positive for COVID-19: Yes Exposed to someone with COVID-19 in past 14 days?: No Do you have a sore throat?: No Do you have a cough?: No Do you have any weakness?: No Are you experiencing any nausea/vomitting?: No Do you have any diarrhea?: No Are you experiencing any unusual bleeding?: No Do you have any muscle aches/pain?: No Do you have any abdominal pain?: No Are you experiencing loss of taste or smell?: No [facility] Anesthesia Checklist Patient Identification Patient Identification: Arm Band and Verbal (Name & ) Structural Data Admitted From: Home Planned Operative Procedure/s: Colonoscopy Consent for Planned Operative Procedure(s) Verified: Yes Verified Documents: Surgical Consent and History and Physical NPO Status Verified Time NPO: 06:00 Chart Verification Results Verified: CBC, BMP, ECG and Chest Xray Additional verifications Patient : No Anesthesia Reactions: No Previous Colonoscopy: Yes Cardiovascular Assessment Heart Sounds: S1 & S2 Pulse Rhythm: Irregular Peripheral Edema: No Airway Assessment Mallampati Score:: Class III C-Spine Mobility Assessed: Yes TMJ Mobility Assessed: Yes Dentition: Good Dentition (Nothing loose per pt.) Neurological Assessment Level of Consciousness: Awake, Alert, Appropriate and Follows Commands Hx Seizures: No Numbness or tingling in extremities: No Anesthesia Plan Anesthesia Risk discussed: Yes Anesthesia Plan: Verified ASA Class: III Anesthesia Type: MAC
--- NOTE | 2024-02-18 10:00 | EXP.HP ---
History of Present Illness *Admission Date: 02/18/24 *Reason for visit:: Surveillance colonoscopy *History of present illness: Mr. Sosa is a 69-year-old gentleman who is here for surveillance colonoscopy secondary to a personal history of adenomatous colon polyps. The examination is deemed medically necessary for surveillance colonoscopy. The patient has been seen, interviewed and examined prior to the procedure by both myself and the anesthesia provider. [facility] Disclaimer: The information contained in this section may have been updated after the patient was seen, as this information can be updated by other users. Medical History (Updated 02/18/24 @ 10:13 by Joseph Buck II, MD) COPD (chronic obstructive pulmonary disease) CAD (coronary artery disease) Hypercholesterolemia Hypertension Surgical History S/P colonoscopic polypectomy H/O hernia repair H/O heart artery stent S/P cardiac cath History of tonsillectomy Family History Mother Cancer Social History (Updated 02/18/24 @ 09:40 by Verna Andrews RN) Smoking Status: Former smoker tobacco type: cigarettes packs per day: 1 alcohol intake: never counseling provided: none substance use type: denies use current occupational status: retired Travel in the last 8 weeks: None household members: spouse housing: house caffeine: No Have you lived/traveled outside US in past 30 days?: No Contact w/someone who lives/traveled outside US past 30 days?: No Exposure to someone with infectious disease in past 14 days?: No Do you have a fever (greater than 100.4 F or 38 C)?: No Have you tested positive for COVID-19: Yes Exposed to someone with COVID-19 in past 14 days?: No Do you have a sore throat?: No Do you have a cough?: No Do you have any weakness?: No Are you experiencing any nausea/vomitting?: No Do you have any diarrhea?: No Are you experiencing any unusual bleeding?: No Do you have any muscle aches/pain?: No Do you have any abdominal pain?: No Are you experiencing loss of taste or smell?: No Other Medical History Have you received the Flu Vaccine for this season: No Have you received the Pneumonia Vaccine: Yes Review of Systems Review of Systems Review of systems (narrative): Negative *Cardiovascular Comments: Negative *Gastrointestinal Comments: Negative *Genitourinary Comments: Negative *Musculoskeletal Comments: Negative *Neurologic Comments: Negative Meds Home Medications and Allergies Home Medications ?Medication ?Instructions ?Recorded ?Confirmed ?Type aspirin 81 mg tablet,delayed 81 mg PO DAILY Heart disease 03/02/17 02/18/24 History release (Adult Low Dose Aspirin) ipratropium 0.5 mg-albuterol 3 mg 3 ml inhalation Q4H PRN sob 11/21/22 02/18/24 History (2.5 mg base)/3 mL nebulization soln ciclesonide 50 mcg nasal spray 2 spray intranasal DAILY 30 days 02/10/23 02/18/24 Rx (Omnaris) #12.5 grams fluticasone fur. 200 mcg-umeclid See Rx Instructions .Route 08/21/23 02/18/24 Rx 62.5 mcg-vilant 25 mcg .COMPLEX #180 blisters inhalat.powder (Trelegy Ellipta) albuterol sulfate 90 mcg/actuation See Rx Instructions .Route 09/14/23 02/18/24 Rx aerosol inhaler .COMPLEX #18 grams lisinopril 20 mg tablet 20 mg PO BID Hypertension #180 tabs 11/23/23 02/18/24 Rx sodium,potassium,mag sulfates 17.5 See Rx Instructions PO .COMPLEX 02/05/24 02/16/24 Rx gram-3.13 gram-1.6 gram oral soln #354 mL (Suprep Bowel Prep Kit) atorvastatin 80 mg tablet See Rx Instructions .Route 02/12/24 02/18/24 Rx .COMPLEX #90 tabs carvedilol 25 mg tablet (Coreg) 25 mg PO BID #60 tabs 02/16/24 02/18/24 Rx New Prescriptions to Start Prescriptions: Allergies Allergy/AdvReac Type Severity Reaction Status Date / Time No Known Allergies Allergy Verified 02/18/24 09:32 Exam Data for Last 24 hours Vital signs and Labs for Last 24 Hours: Temp Pulse Resp BP Pulse Ox O2 Del Method 97.9 F 77 18 168/103 H 93 L Room Air 02/18/24 09:36 02/18/24 09:36 02/18/24 09:36 02/18/24 09:36 02/18/24 09:36 02/18/24 09:36 I & O for Last 24 hours: Intake & Output 02/15/24 02/16/24 02/17/24 02/18/24 23:59 23:59 23:59 23:59 Weight 147 lb *Routine HEENT Exam Head: Present normocephalic Eye: Present EOMI and PERRL ENT: Present mucous membranes moist *Routine Neck Exam Neck: Present supple *Routine Respiratory Exam Respiratory: Present CTA bilaterally *Routine Cardiovascular Exam Cardiovascular: Present RRR *Routine Abdominal Exam Abdominal: Present soft and normoactive bowel sounds; Absent tenderness *Routine Rectal Exam Rectal:: deferred *Routine Genitalia Exam Genitalia:: deferred *Routine Extremities Exam Extremities: Absent cyanosis, clubbing or edema *Routine Skin Exam Skin: Present warm; Absent rash *Routine Neurological Exam Neurological: Present alert and oriented X3 Assessment and Plan *Assessment and plan (1) Personal history of adenomatous and serrated colon polyps: Status: Acute Category: Medical Code(s): Z86.0101 - Personal history of adenomatous and serrated colon polyps Plan A/P: 1. Surveillance colonoscopy secondary to personal history of adenomatous colon polyps is the preprocedural diagnosis. The patient did have a traditional serrated adenoma as well as 4 additional smaller tubular adenomas removed in June 2020. The patient will be anesthetized/sedated using MAC sedation. The patient has been seen and examined. Cardiac and lung assessment prior to the examination is stable. Proceed with planned surveillance colonoscopy
[2024-02-18 10:10] VITALS: O2SAT 99
--- NOTE | 2024-02-18 10:13 | [facility]H.PROCNOTE ---
[facility] Procedure Note Date: 02/18/24 Time: 10:35 Procedure Note:: Colonoscopy Procedure Report: Colonoscopy with cold snare polypectomy Endoscopist: Joseph Buck II, MD Referring physician: Dayday Handy MD Date of Procedure: February 18, 2024 Equipment: Olympus 190 variable stiffness pediatric colonoscope Sedation: MAC sedation Indication: Mr. Sosa is a 69-year-old gentleman who had a colonoscopy in June 2020 and had 5 polyps (larger traditional serrated adenoma of the rectosigmoid x 1 and smaller tubular adenomas x 4) removed. He reports no abdominal pain, weight loss, change in his bowel habits or rectal bleeding. He reports no family history of colon cancer. He does have some occasional straining and constipation. This is unchanged. Procedure: Prior to the procedure, a history and physical exam was performed, and patient's medications and allergies were reviewed. The risks, benefits and alternatives of the sedation and procedure were discussed with the patient. All questions were answered and informed consent was obtained. The patient was brought to the procedure room. Patient identification and proposed procedure were verified by the physician and the nurse. The patient was placed in a left lateral decubitus position and the scope was passed under direct vision. Throughout the procedure, the patient's blood pressure, pulse, and oxygen saturations were monitored continuously. The colonoscopy was accomplished without difficulty. The patient tolerated the procedure well. Findings: On digital rectal examination there was normal rectal tone. There were no external hemorrhoids. There were small external tags. The colonoscope was introduced through the anal canal to the rectum and advanced to the cecum. The ileocecal valve and appendiceal orifice were identified. The scope was advanced a short distance into the ileum which appeared grossly normal. The scope was then withdrawn into the colon. There were 7 polyps (cecum x 2 (3 and 3 mm), ascending x 2 (3 and 10 mm) and transverse x 3 (4, 4 and 8 mm)). These were all removed via cold snare polypectomy. The remaining cecum, ascending and transverse colon and mucosa were grossly normal. There were scattered diverticuli throughout the descending and sigmoid colon (LEFT colon). The rectum itself was normal. Upon retroflexion within the rectum there were grade 1-2 internal hemorrhoids. The preparation was excellent throughout with Hoagland Preparation Score of 9. The cecal time was 13 minutes. Impression: 1. Colonic polyps x 7 ranging in size from 3 to 10 mm 2. Mild left-sided diverticulosis 3. Grade 1-2 internal hemorrhoids Plan: I will follow-up the polyp histology and recommend repeat surveillance colonoscopy again in 3 years based upon number and size of adenomatous polyps and prior traditional serrated adenoma. Traditional serrated adenoma (TSA) is an uncommon type of serrated adenoma that can be a precursor to biologically aggressive colorectal cancer that invokes the serrated (accelerated) pathway. I would encourage psyllium bulking fiber supplementation on a long-term daily maintenance basis.
[2024-02-18 10:37] VITALS: BP 102/63; PULSE 74; RESP 16; TEMP 36.7; O2SAT 97
[2024-02-18 10:47] VITALS: BP 117/69; PULSE 71; RESP 16; O2SAT 96
[2024-02-18 10:57] VITALS: BP 133/76; PULSE 76; RESP 16; O2SAT 99
[2024-02-18 11:07] VITALS: BP 151/81; PULSE 63; RESP 16; O2SAT 97
== END 2024-02-18 11:10 | disposition home or self-care (01) ==
PROVIDERS: PCP Nurse Practitioner Family; Visit Provider Internal Medicine Gastroenterology
PROC: (CPT 45385; principal; 2024-02-18 11:00)
DX: K63.5 Polyp of colon (principal); K57.30 Diverticulosis of large intestine without perforation or abscess without bleeding; K64.8 Other hemorrhoids; Z86.0101 Personal history of adenomatous and serrated colon polyps
CPT/HCPCS: 45385; J7120

== ENCOUNTER 2024-09-16 12:19 | Outpatient (CLI) | payer MEDICARE, SELFPAY ==
[2024-09-16 14:44] LABS: Albumin Level 4.0 g/dl (3.5-5.0); Chloride 100 mmol/L (98-107)
[2024-09-16 14:45] LABS: Potassium 5.4 mmoL/L (3.5-5.1); Sodium 136 mmol/L (136-145)
[2024-09-16 14:47] LABS: Alanine Aminotransferase 26 U/L (12-78); Alkaline Phosphatase 109 U/L (38-126); Anion Gap 8.4 mEq/L (5-15); Aspartate Amino Transferase 30 U/L (17-59); Bilirubin,Total 0.6 mg/dl (0.2-1.3); Blood Urea Nitrogen 23 mg/dl (9-20); Carbon Dioxide 33 mmol/L (22.0-30.0); Creatinine,Serum 0.90 mg/dl (0.66-1.25); Estimated Glomerular Filt Rate 83 ml/min (>60); GFR (African American) 101 ML/MIN (>60)
[2024-09-16 14:48] LABS: Albumin/Globulin Ratio 1.7 (1.1-1.8); Calcium 9.0 mg/dl (8.4-10.2); Globulin 2.4 g/dL (1.3-3.2); Glucose 90 mg/dl (74-100); Magnesium 2.1 mg/dl (1.6-2.3); Total Protein,Serum 6.4 g/dl (6.3-8.2)
[2024-09-16 15:20] LABS: Thyroid Stimulating Hormone 1.20 uIU/mL (0.465-4.68)
== END 2024-09-16 23:59 | disposition home or self-care (01) ==
LOC: LAB.DROPOF 09-19 12:19
PROVIDERS: PCP Nurse Practitioner Family; Visit Provider Nurse Practitioner Family
DX: R25.2 Cramp and spasm (principal); R63.5 Abnormal weight gain
CPT/HCPCS: 36415; 80053; 83735; 84443

== ENCOUNTER 2024-10-19 14:15 | Outpatient (CLI) | payer MEDICARE, SELFPAY ==
--- OUTSIDE RECORDS SUMMARY | 2024-10-19 14:19 | XMS_ITS | Patient Health Record ---
Author Organization [facility] Address [address] [place] [id number] Care Team Providers Care Junior Sales Representative Name Role Phone Kolton Handy Primary Care Provider Allergies Allergen (clinical drug ingredient) Drug/Non Drug Allergy documented on EMR Reaction Allergy Type Onset Date Status aspirin Aspirin Unknown Drug Allergy Active clarithromycin Clarithromycin rash Drug Allergy Active Medications Medication SIG (Take, Route, Frequency, Duration) Notes Start Date End Date Status Aspirin 81 MG 1 tab(s) orally once a day Active Trelegy Ellipta 200-62.5-25 MCG/ACT 1 puff(s) inhaled once a day Active Lisinopril 20 MG 1 tab(s) orally 2 ti mes a day; Duration: 90 days Active Carvedilol 12.5 MG 1 tab(s) orally 2 ti mes a day; Duration: 90 days Active Atorvastatin Calcium 80 MG 1 tab(s) orally once a day Active predniSONE 20 MG 1 tab tid x 3 days, then 1 tab bid x 3 days, then 1 tab qd x 3 days orally Active HYDROcodone Bit-Homatrop MBr 5-1.5 MG 1 tab(s) orally every 6 hours 02/22/2021 Active Ventolin HFA 108 (90 Base) MCG/ACT INHALE 2 PUFFS BY MOUTH FOUR TIMES DAILY NEEDED * SHAKE WELL BEFORE USE * Active levoFLOXacin 500 MG 1 tab(s) orally ever y 24 hours; Duration: 10 day(s) Not-Taking Meclizine HCl 25 MG 1 tab(s) orally 3 ti mes a day; Duration: 10 Not-Taking Amoxicillin-Pot Clavulanate 875-125 MG 1 tab(s) orally every 12 hours; Duration: 10 day(s) Not-Taking HYDROcodone Bit-Homatrop MBr 5-1.5 MG 1 tab(s) orally every 6 hours 05/13/2021 Active Immunizations Vaccine Route Administration Date Status Comme nts Fluzone PF Quad (6-35 months) Unknown 11/15/2018 Administered Hepatitis B (20 and more) Unknown 09/29/2005 Administer ed Hepatitis B (20 and more) Unknown 11/06/2005 Administer ed Hepatitis B (20 and more) Unknown 04/13/2006 Administer ed Prevnar (PCV13) Unknown 11/15/2018 Administered Shingrix Unknown 03/01/2018 Administered Shingrix IM Intramuscular 07/13/2018 Administered Tetanus Tdap-Adacel (over 7yrs) IM Intramuscular 10/21/2011 Administered Problems Problem Type SNOMED Code ICD Code Onset Dates Problem Status W/U Status Risk Notes Problem Emphysema of lung (26418051) Emphysema of lung NOS (492.8) Active confirmed Problem COPD - Chronic obstructive pulmonary disease (97556920) COPD [Chronic obstructive pulmonary disease] (496) Active confirmed Problem Asthma (750837519) ASTHMA NOS (493.90) Active confirmed Problem Asthmatic bronchitis (090920172) Asthmatic Bronchitis (493.10) Active confirmed Problem Coronary arteriosclerosis (79822468) ASCVD (arteriosclerotic cardiovascular disease) (I25.10) Active confirmed Problem COPD - Chronic obstructive pulmonary disease (74412360) COPD (chronic obstructive pulmonary disease) (J44.9) Active confirmed Problem Essential hypertension (23008357) Essential hypertension (I10) Active confirmed Problem Asthmatic bronchitis (264766923) Asthmatic bronchitis (J45.909) Active confirmed Problem Acute non-ST segment elevation myocardial infarction (476822971) NSTEMI (non-ST elevated myocardial infarction) (I21.4) Active confirmed Problem Acute exacerbation of chronic obstructive airways disease (314905610) COPD exacerbation (J44.1) Active confirmed Problem Mucopurulent chronic bronchitis (08270788) Mucopurulent chronic bronchitis (J41.1) Active confirmed Problem COPD - Chronic obstructive pulmonary disease (47161695) Chronic obstructive pulmonary disease, unspecified COPD type (J44.9) Active confirmed Problem Atherosclerotic heart disease of [place] coronary artery without angina pectoris (986215639645910) Atherosclerosis of [place] coronary artery without angina pectoris, unspecified whether [place] or transplanted heart (I25.10) Active confirmed Problem Primary hypertension (66570058) Primary hypertension (I10) Active confirmed Plan Of Treatment No Information Insurance Providers Payer Name Payer Address Payer Phone Subscriber Number Group Number Insured Name Patient Relationship to Insured Coverage Start Date Coverage End Date [employer] (MEDICAR E) [address] [address] [place] [address] [id number] MORIAH HERNANDEZ Self - patient is the insured Medications Administered Medication Instructions Date of Administration Dosage Notes celestone 03/09/2009 6 mg depo medrol 80 mg 02/25/2013 1.5 Depo- Medrol 40 mg/ml 05/30/2008 1.5 mL Depo- Medrol 40 mg/ml 07/28/2008 1.5 mL Depo- Medrol 40 mg/ml 04/23/2009 1.5 mL Depo- Medrol 40 mg/ml 12/14/2009 1.5 mL Depo- Medrol 40 mg/ml 01/28/2010 1.5 mL Depo- Medrol 40 mg/ml 06/28/2010 1.5 mL Depo- Medrol 40 mg/ml 04/05/2011 1.5 mL Depo- Medrol 40 mg/ml 11/06/2012 1.5 mL Depo- Medrol 40 mg/ml 09/24/2013 1.5 mL Depo- Medrol 40 mg/ml 09/28/2015 1.5 mL Dexamethasone 10/06/2007 1 mL Dexamethasone 01/22/2010 1 mL Dexamethasone 01/31/2010 1 mL Dexamethasone 02/05/2010 1 mL Dexamethasone 03/27/2011 1 mL Dexamethasone 07/18/2011 1 mL Dexamethasone 09/19/2011 Dexamethasone 10/28/2011 1.5 mL Dexamethasone 12/29/2011 1 mL Dexamethasone 02/13/2012 1.5 mL Dexamethasone 05/21/2012 1 mL Dexamethasone 03/28/2013 Dexamethasone 06/02/2013 Dexamethasone 01/30/2014 1 mL Dexamethasone 03/24/2014 1 mL Dexamethasone 08/11/2014 1 mL Dexamethasone 11/06/2014 1 mL Dexamethasone 12/18/2014 1 mL Dexamethasone 03/16/2015 1 mL Dexamethasone 04/30/2015 1 mL Dexamethasone 06/25/2015 1 mL Dexamethasone 12/06/2015 1 mL Dexamethasone 04/08/2016 1.5 mL Dexamethasone 05/16/2016 1.5 mL Dexamethasone 10/10/2016 1 mL Dexamethasone 12/23/2016 1 mL Dexamethasone 02/06/2017 1 mL Dexamethasone 03/27/2017 1 mL Dexamethasone 03/31/2017 1 mL Dexamethasone 10/20/2017 1 mL Dexamethasone 12/25/2017 1 mL Dexamethasone 03/16/2018 1 mL Dexamethasone 05/07/2018 1 mL Dexamethasone 07/26/2018 1 mL Dexamethasone 09/30/2018 1 mL Dexamethasone 02/14/2019 1 mL Dexamethasone 05/09/2019 1 mL Dexamethasone 07/15/2019 1 mL Medical (General) History Medical History History ICD Code asthma MRSA pneumonia C. diff colitis NSTEMI - 07/[address] 10/2018 -> COPD positive Covid 03/01 Surgical History Surgery Date(Month/Year) double hernia sx tonsillectomy lt knee scope Hospitalization History Reason Date(Month/Year) Asthma attack, [place], [place] mar. 2007 [facility] 02/18/12 to 02/24/[address] [facility]- C-diff & MRSA 07/22-07/28/[address] [facility]-covid, pneumonia 03/01
--- NOTE | 2024-10-19 14:30 | CA_ITS ---
FINAL REPORT TECHNIQUE: Urena scale, color and spectral doppler images of the bilateral carotid arteries were obtained. CLINICAL HISTORY: DIZZINESS,HTN COMPARISON: None FINDINGS: Peak systolic velocity in the right internal carotid artery is 86 cm/sec. The internal carotid to common carotid artery ratio is 1.0 there is no significant carotid artery stenosis and mild to moderate plaque formation. The right vertebral artery is normal in direction. Peak systolic velocity in the left internal carotid artery is 99 cm/sec. The internal carotid to common carotid artery ratio is 1.02. There is no significant carotid artery stenosis and moderate plaque formation. The left vertebral artery is normal in direction. IMPRESSION: No ultrasound evidence of hemodynamically significant carotid artery stenosis. Normal peak systolic velocities and normal internal to common carotid artery ratios bilaterally. Reviewed, Interpreted and Dictated by Marissa Melo MD Transcribed by Elizabeth Tam Authenticated and [facility]
== END 2024-10-19 23:59 | disposition home or self-care (01) ==
LOC: RT 14:15
PROVIDERS: PCP Nurse Practitioner Family; Visit Provider Nurse Practitioner Family
DX: R42 Dizziness and giddiness (principal); I10 Essential (primary) hypertension
CPT/HCPCS: 93880